=== PATIENT | male | born 1970 | race Caucasian/White ===

== ENCOUNTER 2021-01-23 12:22 | Emergency (ER) | payer BC, OTHER ==
--- NOTE | 2021-01-23 12:51 | XR ---
EXAMINATION TYPE: XR chest 2V DATE OF EXAM: 01/23/2021 COMPARISON: NONE HISTORY: Pneumonia and shortness of breath TECHNIQUE: Frontal and lateral views of the chest are obtained. FINDINGS: There is no focal air space opacity, pleural effusion, or pneumothorax seen. The cardiac silhouette size is within normal limits, questionable prominence of left pulmonary artery, patient is rotated. The osseous structures are intact. IMPRESSION: No acute cardiopulmonary process. Questionable prominence of the pulmonary artery may be technical.
[2021-01-23 13:41] VITALS: RESP 20
[2021-01-23] MEDS ORDERED: SODIUM CHLORIDE 0.9% 1,000 ML IV ONE (13:42)
[2021-01-23] MEDS ORDERED: ACETAMINOPHEN TAB 500 MG TAB PO STA (13:43)
[2021-01-23] MEDS ORDERED: IBUPROFEN 600 MG TAB PO STA (13:43)
--- NOTE | 2021-01-23 13:49 | ED ---
General Adult HPI - General Chief complaint: Upper Respiratory Infection Stated complaint: Stomach, Pain, Loss of taste and smell, headache Time Seen by Provider: 01/23/21 13:48 Source: patient, RN notes reviewed, old records reviewed Mode of arrival: ambulatory Limitations: no limitations - History of Present Illness Initial comments: This a 50-year-old male presents emergency Department with a 2 day history of not feeling well. Patient states he has achiness all over his taste is changed. Patient also states he has diarrhea. Patient states he has a cough and felt short of breath today so decided to come to the emergency department be checked out. Patient doesn't know if he had a fever or not. Patient denies any headache patient denies lightheadedness or dizziness. Patient denies any chest pain. Patient states he had a little abdominal cramping earlier but is gone currently. Patient denies any leg swelling or calf tenderness. - Related Data Home Medications Medication Instructions Recorded Confirmed Atorvastatin [Lipitor] 20 mg PO HS 01/23/21 01/23/21 amLODIPine BESYLATE/BENAZEPRIL 1 cap PO DAILY 01/23/21 01/23/21 [Lotrel 5-20 MG] Previous Rx's Medication Instructions Recorded Atorvastatin [Lipitor] 20 mg PO HS #30 tablet 01/23/21 amLODIPine BESYLATE/BENAZEPRIL 1 tab PO DAILY #30 01/23/21 [amLODIPine BESYLATE/BENAZEPRIL 5-20 MG] Allergies Allergy/AdvReac Type Severity Reaction Status Date / Time No Known Allergies Allergy Verified 01/23/21 15:06 Review of Systems ROS Statement: Those systems with pertinent positive or pertinent negative responses have been documented in the HPI. ROS Other: All systems not noted in ROS Statement are negative. Past Medical History Past Medical History: Hypertension History of Any Multi-Drug Resistant Organisms: None Reported Past Surgical History: Hernia Repair Past Psychological History: No Psychological Hx Reported Smoking Status: Current every day smoker Past Alcohol Use History: None Reported Past Drug Use History: Marijuana General Exam - General Exam Comments Initial Comments: GENERAL: Patient is well-developed and well-nourished. Patient is nontoxic and well- hydrated and is in mild distress. ENT: Neck is soft and supple. No significant lymphadenopathy is noted. Oropharynx is clear. Moist mucous membranes. Neck has full range of motion without eliciting any pain. EYES: The sclera were anicteric and conjunctiva were pink and moist. Extraocular movements were intact and pupils were equal round and reactive to light. Eyelids were unremarkable. PULMONARY: Unlabored respirations. Good breath sounds bilaterally. No audible rales rhonchi or wheezing was noted. CARDIOVASCULAR: There is a regular rate and rhythm without any murmurs gallops or rubs. ABDOMEN: Soft and nontender with normal bowel sounds. SKIN: Skin is clear with no lesions or rashes and otherwise unremarkable. NEUROLOGIC: Patient is alert and oriented x3. Cranial nerves II through XII are grossly intact. Motor and sensory are also intact. Normal speech, volume and content. Symmetrical smile. MUSCULOSKELETAL: Normal extremities with adequate strength and full range of motion. No lower extremity swelling or edema. No calf tenderness. LYMPHATICS: No significant lymphadenopathy is noted PSYCHIATRIC: Normal psychiatric evaluation. Limitations: no limitations Course Vital Signs 01/23/21 01/23/21 01/23/21 12:24 13:14 13:37 Temperature 99.2 F 99.2 F Pulse Rate 104 H 98 95 Respiratory 22 22 20 Rate Blood Pressure 198/77 207/110 180/112 O2 Sat by Pulse 99 98 97 Oximetry 01/23/21 01/23/21 01/23/21 14:49 16:05 16:07 Temperature 98.4 F Pulse Rate 86 91 Respiratory 20 20 20 Rate Blood Pressure 221/120 161/95 O2 Sat by Pulse 98 98 Oximetry Medical Decision Making - Medical Decision Making EKG shows normal sinus rhythm at 60 bpm MS interval is 164 QRS is 90 QT intervals 426 QTC is 452. Patient's EKG shows no ST segment elevation or depression. I could not find any source of infection however patient's symptoms were so consistent with COVID the loss of taste in diarrhea and body aches that I ordered a PCR COVID test. Patient's states he is feeling considerably better after received Tylenol Motrin. Patient's blood pressure came down with hydralazine. I will be ordering patient's blood pressure and Lipitor he has been out of it since 2019 he states he didn't want to go to his doctor's because of the COVID and didn't take any blood pressure meds for over a year - Lab Data Result diagrams: 01/23/21 13:49 01/23/21 13:49 Lab Results 01/23/21 01/23/21 01/23/21 Range/Units 12:28 13:49 13:49 WBC 13.9 H (3.8-10.6) k/uL RBC 5.45 (4.30-5.90) m/uL Hgb 17.7 H (13.0-17.5) gm/dL Hct 50.4 (39.0-53.0) % MCV 92.4 (80.0-100.0) fL MCH 32.5 (25.0-35.0) pg MCHC 35.2 (31.0-37.0) g/dL RDW 13.3 (11.5-15.5) % Plt Count 280 (150-450) k/uL MPV 7.1 Neutrophils % 78 % Lymphocytes % 12 % Monocytes % 5 % Eosinophils % 3 % Basophils % 1 % Neutrophils # 10.9 H (1.3-7.7) k/uL Lymphocytes # 1.7 (1.0-4.8) k/uL Monocytes # 0.7 (0-1.0) k/uL Eosinophils # 0.4 (0-0.7) k/uL Basophils # 0.1 (0-0.2) k/uL Sodium (137-145) mmol/L Potassium (3.5-5.1) mmol/L Chloride (98-107) mmol/L Carbon Dioxide (22-30) mmol/L Anion Gap mmol/L BUN (9-20) mg/dL Creatinine (0.66-1.25) mg/dL Est GFR (CKD-EPI)AfAm (>60 ml/min/1.73 sqM) Est GFR (CKD-EPI)NonAf (>60 ml/min/1.73 sqM) Glucose (74-99) mg/dL Calcium (8.4-10.2) mg/dL Total Bilirubin (0.2-1.3) mg/dL AST (17-59) U/L ALT (4-49) U/L Alkaline Phosphatase (38-126) U/L Total Protein (6.3-8.2) g/dL Albumin (3.5-5.0) g/dL Coronavirus (PCR) Not Detected Not Detected (Not Detectd) 01/23/21 Range/Units 13:49 WBC (3.8-10.6) k/uL RBC (4.30-5.90) m/uL Hgb (13.0-17.5) gm/dL Hct (39.0-53.0) % MCV (80.0-100.0) fL MCH (25.0-35.0) pg MCHC (31.0-37.0) g/dL RDW (11.5-15.5) % Plt Count (150-450) k/uL MPV Neutrophils % % Lymphocytes % % Monocytes % % Eosinophils % % Basophils % % Neutrophils # (1.3-7.7) k/uL Lymphocytes # (1.0-4.8) k/uL Monocytes # (0-1.0) k/uL Eosinophils # (0-0.7) k/uL Basophils # (0-0.2) k/uL Sodium 137 (137-145) mmol/L Potassium 4.0 (3.5-5.1) mmol/L Chloride 103 (98-107) mmol/L Carbon Dioxide 24 (22-30) mmol/L Anion Gap 10 mmol/L BUN 16 (9-20) mg/dL Creatinine 0.92 (0.66-1.25) mg/dL Est GFR (CKD-EPI)AfAm >90 (>60 ml/min/1.73 sqM) Est GFR (CKD-EPI)NonAf >90 (>60 ml/min/1.73 sqM) Glucose 134 H (74-99) mg/dL Calcium 9.2 (8.4-10.2) mg/dL Total Bilirubin 0.5 (0.2-1.3) mg/dL AST 30 (17-59) U/L ALT 36 (4-49) U/L Alkaline Phosphatase 99 (38-126) U/L Total Protein 6.9 (6.3-8.2) g/dL Albumin 4.2 (3.5-5.0) g/dL Coronavirus (PCR) (Not Detectd) Disposition Clinical Impression: Hypertensive urgency, Myalgia, Diarrhea, Upper respiratory infection Disposition: HOME SELF-CARE Instructions (If sedation given, give patient instructions): Upper Respiratory Infection (ED) Prescriptions: amLODIPine BESYLATE/BENAZEPRIL [amLODIPine BESYLATE/BENAZEPRIL 5-20 MG] 1 tab PO DAILY #30 Atorvastatin [Lipitor] 20 mg PO HS #30 tablet Is patient prescribed a controlled substance at d/c from ED?: No Referrals: Bryon Phan DO [Primary Care Provider] - 1-2 days
[2021-01-23 14:02] LABS: Basophils # (A) 0.1 k/uL (0-0.2); Basophils % (A) 1 %; Eosinophils # (A) 0.4 k/uL (0-0.7); Eosinophils % (A) 3 %; HCT 50.4 % (39.0-53.0); HGB 17.7 gm/dL (13.0-17.5); Lymphocytes # (A) 1.7 k/uL (1.0-4.8); Lymphocytes % (A) 12 %; MCH 32.5 pg (25.0-35.0); MCHC 35.2 g/dL (31.0-37.0); MCV 92.4 fL (80.0-100.0); Mean Platelet Volume 7.1; Monocytes # (A) 0.7 k/uL (0-1.0); Monocytes % (A) 5 %; Neutrophils # (A) 10.9 k/uL (1.3-7.7); Neutrophils % (A) 78 %; Platelet Count 280 k/uL (150-450); RBC 5.45 m/uL (4.30-5.90); RDW 13.3 % (11.5-15.5); WBC 13.9 k/uL (3.8-10.6)
[2021-01-23 14:16] LABS: ALT 36 U/L (4-49); AST 30 U/L (17-59); African American GFR (CKD) >90 (>60 ml/min/1.73 sqM); Albumin 4.2 g/dL (3.5-5.0); Alkaline Phosphatase 99 U/L (38-126); Anion Gap 10 mmol/L; Blood Urea Nitrogen 16 mg/dL (9-20); Calcium 9.2 mg/dL (8.4-10.2); Carbon Dioxide 24 mmol/L (22-30); Chloride 103 mmol/L (98-107); Glucose 134 mg/dL (74-99); Non-African American GFR(CKD) >90 (>60 ml/min/1.73 sqM); Sodium 137 mmol/L (137-145); Total Bilirubin 0.5 mg/dL (0.2-1.3); Total Protein 6.9 g/dL (6.3-8.2)
[2021-01-23] MEDS ORDERED: hydrALAZINE HCL 20 MG/ML 1 ML VIAL IVP STA ×2 (14:44→14:50)
[2021-01-23 16:08] VITALS: BP 161/95; PULSE 91; TEMP 98.4
== END 2021-01-23 16:08 | disposition home or self-care (01) ==
LOC: EC 12:22
DX: I16.0 Hypertensive urgency (principal); M79.10 Myalgia, unspecified site; R19.7 Diarrhea, unspecified; J06.9 Acute upper respiratory infection, unspecified; R10.9 Unspecified abdominal pain; R43.9 Unspecified disturbances of smell and taste; I10 Essential (primary) hypertension; F17.200 Nicotine dependence, unspecified, uncomplicated; F12.90 Cannabis use, unspecified, uncomplicated; Z79.899 Other long term (current) drug therapy; Z20.822 Contact with and (suspected) exposure to COVID-19
CPT/HCPCS: 36415; 93005; 80053; 85025; 87635; 71046; 99285; 96374; 96361; J0360

== ENCOUNTER 2021-05-25 10:16 | Day surgery (SDC) | payer BC ==
[2021-05-22 15:10] VITALS: BMI 36.9
[~2021-05-25 10:16] MED LIST: LACTATED RINGERS 1,000 ML IV SCH; LIDOCAINE 1% (10MG/ML) FOR IV START INTRADERMA PRN
[2021-05-25 10:34] VITALS: TEMP 98.4
[2021-05-25] MEDS ORDERED: LIDOCAINE 1% INJ 10MG/ML (20 ML MDV) ONE (11:12)
[2021-05-25] MEDS ORDERED: PROPOFOL 10 MG/ML 20 ML VIAL IV ONE (11:12)
--- NOTE | 2021-05-25 11:29 | P.HPIHPCON ---
History of Present Illness H&P Date: 05/25/21 50-year-old male presents for screening colonoscopy. States he has had colonoscopies in the past and did have polyps found. He admits to some blood in his stool after the prep. Denies any family history of colon cancer. Consent for Procedure: I have explained the operation/procedure to the patient, including the risks, benefits, side effects, alternative therapies (including not receiving the proposed treatment or service), the likelihood of the patient achieving his/her goals, and potential recuperation problems for the procedure/sedation/analgesia, as well as any blood products, if indicated. I also explained to the patient the risks, benefits and side effects of the alternatives, as well as the risks related to not receiving the proposed procedure, care, treatment, or services. - Review of Systems All systems: negative Past Medical History Past Medical History: Hyperlipidemia, Hypertension History of Any Multi-Drug Resistant Organisms: None Reported Past Surgical History: Cholecystectomy, Hernia Repair Additional Past Surgical History / Comment(s): SURGERY TO ABSCESS ON BUTTOCKS Past Anesthesia/Blood Transfusion Reactions: No Reported Reaction Past Psychological History: No Psychological Hx Reported Smoking Status: Current every day smoker Past Alcohol Use History: None Reported Additional Past Alcohol Use History / Comment(s): SMOKES <1/2 PPD SINCE AGE 15 Past Drug Use History: Marijuana Additional Drug Use History / Comment(s): USES MARIJUANA COUPLE TIMES A WEEK- INSTRUCTED TO REFRAIN FROM USE FOR AT LEAST 24 HOURS PRIOR TO PROCEDURE - Past Family History Father Family Medical History: Cancer Medications and Allergies Home Medications Medication Instructions Recorded Confirmed Type Atorvastatin [Lipitor] 20 mg PO HS #30 tablet 01/23/21 05/22/21 Rx amLODIPine BESYLATE/BENAZEPRIL 1 tab PO DAILY #30 01/23/21 05/22/21 Rx [amLODIPine BESYLATE/BENAZEPRIL 5-20 MG] Allergies Allergy/AdvReac Type Severity Reaction Status Date / Time No Known Allergies Allergy Verified 05/22/21 15:02 Surgical - Exam Osteopathic Statement: *. No significant issues noted on an osteopathic structural exam other than those noted in the History and Physical/Consult. Vital Signs Temp Pulse Resp BP Pulse Ox 98.4 F 82 20 177/89 96 05/25/21 10:32 05/25/21 10:32 05/25/21 10:32 05/25/21 10:32 05/25/21 10:32 - General no distress - Neck trachea midline - Respiratory normal respiratory effort - Abdomen Abdomen: soft, non tender Assessment and Plan Plan: Plan for screening colonoscopy. Risks, benefits and alternatives were provided to the patient.. Consent was obtained. Further recommendations after procedure.
--- NOTE | 2021-05-25 11:32 | P.PCN ---
Date of Procedure: 05/25/21 Preoperative Diagnosis: Screening Postoperative Diagnosis: Transverse colon polyp Diverticulosis Internal hemorrhoids Procedure(s) Performed: Colonoscopy with hot snare polypectomy Anesthesia: MAC Surgeon: Evelyne Dia Pathology: other (Transverse colon polyp) Condition: stable Disposition: same day Indications for Procedure: 50-year-old male presents for screening colonoscopy. States he does have a personal history of colon polyps. He did have blood in his stool after his colon prep. Operative Findings: Transverse colon polyp Diverticulosis Internal hemorrhoids Description of Procedure: The patient was brought into the endoscopy suite and placed in left lateral decubitus position. Adequate sedation was achieved using conscious sedation. A digital rectal exam was performed and mild internal hemorrhoids were palpated. An endoscope was then placed in the rectum and advanced to the cecum as identified by landmarks including the appendiceal orifice and the ileocecal valve. The prep was good. The colonoscope was then slowly withdrawn, examining for any mucosal abnormalities. The cecum, ascending, transverse, descending and sigmoid colon were visualized adequately. No large neoplastic lesion was noted. A peduncular polyp was noted in the transverse colon. This was removed with hot snare polypectomy. Hemostasis was noted to be maintained. Diverticulosis was noted in the sigmoid colon. Retroflexion was performed in the rectum and internal hemorrhoids were visible. Excess air was removed, the colonoscope withdrawn and the procedure terminated. The patient was then transferred to the recovery unit in stable condition. Repeat colonoscopy should be performed in 5 years.
[2021-05-25 12:03] VITALS: BP 187/93; PULSE 66; RESP 16
== END 2021-05-25 12:19 | disposition home or self-care (01) ==
LOC: ORWHC2ENDO 10:16
PROVIDERS: ATTEND Surgery
DX: Z12.11 Encounter for screening for malignant neoplasm of colon (principal); D12.3 Benign neoplasm of transverse colon; K57.90 Diverticulosis of intestine, part unspecified, without perforation or abscess without bleeding; K64.8 Other hemorrhoids; I10 Essential (primary) hypertension; E78.5 Hyperlipidemia, unspecified; F17.210 Nicotine dependence, cigarettes, uncomplicated; Z79.899 Other long term (current) drug therapy
CPT/HCPCS: 88305; 45385; J2001; J2704

== ENCOUNTER 2022-06-25 10:49 | Emergency (ER) | payer BC ==
[2022-06-25 11:01] VITALS: TEMP 97.8
[2022-06-25] MEDS ORDERED: MORPHINE SULFATE 4 MG/ML SYRINGE IV STA (11:03)
[2022-06-25 11:35] LABS: Basophils # (A) 0.1 k/uL (0-0.2); Basophils % (A) 1 %; Eosinophils # (A) 0.3 k/uL (0-0.7); Eosinophils % (A) 3 %; HCT 50.7 % (39.0-53.0); Lymphocytes % (A) 18 %; MCHC 33.6 g/dL (31.0-37.0); MCV 98.2 fL (80.0-100.0); Mean Platelet Volume 7.5; Monocytes # (A) 0.5 k/uL (0-1.0); Monocytes % (A) 5 %; Neutrophils % (A) 72 %; Platelet Count 252 k/uL (150-450); RBC 5.16 m/uL (4.30-5.90); WBC 11.1 k/uL (3.8-10.6)
--- NOTE | 2022-06-25 11:45 | CT ---
EXAMINATION TYPE: CT angio abdomen pelvis DATE OF EXAM: 06/25/2022 COMPARISON: Non-, PACS downtime HISTORY: Right upper quadrant pain into back with ripping sensation and nausea and vomiting CT DLP: 1844.4 mGycm, Automated Exposure Control for Dose Reduction was Utilized. CONTRAST: CTA scan of the abdomen and pelvis is performed without oral and without and with IV Contrast, patien t injected with 100 mL of Isovue 370. Three-D reconstructed images created on an independent workstat ion. Dissection protocol. FINDINGS: Vascular: Patent celiac artery and SMA without significant plaque or stenosis. Patent bilateral singl e renal arteries without significant stenosis. Patent TENISHA. Mild peripheral plaque distal abdominal ao rta extends into common iliac artery branches without significant stenosis. No significant plaque or stenosis in the external iliac arteries into the femoral arteries bilaterally. No linear hypodensity to suggest dissection. No greater than 3.0 cm AAA. LUNG BASES: No significant abnormality is appreciated. LIVER/GB: Visualized liver heterogeneously hypodense. Gallbladder surgically absent. No biliary dilat ation. PANCREAS: No significant abnormality is seen. SPLEEN: No significant abnormality is seen. ADRENALS: No significant abnormality is seen. KIDNEYS: No significant abnormality is seen. No convincing CT evidence for acute diverticulitis BOWEL: Prominent sigmoid colonic diverticulosis. PROSTATE/SEMINAL VESICLES: No gross abnormality seen. LYMPH NODES: No greater than 1cm abdominal or pelvic lymph nodes are appreciated. OSSEOUS STRUCTURES: [id number] multilevel spurring in the thoracolumbar spine. OTHER: Narrowing neck Ventral wall hernia containing fat right midabdomen axial image [address] of prior port insertion for laparoscopic surgery. IMPRESSION: No abdominal aortic aneurysm or dissection. No bowel obstruction. No significant acute fi nding is seen to account for patient's clinical symptoms.
[2022-06-25 11:47] LABS: ALT 34 U/L (4-49); AST 31 U/L (17-59); African American GFR (CKD) >90 (>60 ml/min/1.73 sqM); Albumin 4.3 g/dL (3.5-5.0); Alkaline Phosphatase 92 U/L (38-126); Anion Gap 9 mmol/L; Blood Urea Nitrogen 15 mg/dL (9-20); Calcium 8.9 mg/dL (8.4-10.2); Carbon Dioxide 25 mmol/L (22-30); Chloride 103 mmol/L (98-107); Glucose 123 mg/dL (74-99); Lipase 102 U/L (23-300); Non-African American GFR(CKD) >90 (>60 ml/min/1.73 sqM); Potassium 4.1 mmol/L (3.5-5.1); Sodium 137 mmol/L (137-145); Total Bilirubin 0.5 mg/dL (0.2-1.3); Total Protein 6.6 g/dL (6.3-8.2)
[2022-06-25 11:51] LABS: INR 0.9 (<1.2); Prothrombin Time 9.9 sec (9.0-12.0)
[2022-06-25 11:56] LABS: Partial Thromboplastin Time 21.7 sec (22.0-30.0)
[2022-06-25 12:06] LABS: Appearance,Urine Clear (Clear); Bilirubin,Urine Negative (Negative); Blood,Urine Negative (Negative); Color,Urine Light Yellow; Glucose,Urine (UA) Negative (Negative); Ketones,Urine Negative (Negative); Leukocyte Esterase,Urine Negative (Negative); Nitrite,Urine Negative (Negative); PH, Urine 6.5 (5.0-8.0); Protein,Urine Negative (Negative); Specific Gravity,Urine 1.025 (1.001-1.035); Urobilinogen,Urine <2.0 mg/dL (<2.0)
[2022-06-25 12:47] VITALS: BP 185/101; PULSE 62; RESP 14
--- NOTE | 2022-06-25 13:00 | ED ---
Abdominal Pain HPI - General Chief Complaint: Abdominal Pain Stated Complaint: abd pain Time Seen by Provider: 06/25/22 10:52 Source: patient Mode of arrival: EMS Limitations: no limitations - History of Present Illness Initial Comments: 51-year-old male with past history of hyperlipidemia hypertension presents emergency room with abdominal pain. He went to [facility] and sat there for 13 hours yesterday for right upper quadrant abdominal pain. He was unable to be seen. Came into our emergency department this morning and left after a two-hour wait. Patient then went to an urgent care for his pain where an ambulance was called. They were concerned about his elevated blood pressure and abdominal pain which went to his back. He does have a history of high blood pressure did not take his medications today. Admits to associated nausea without vomiting. No changes in his bowel or bladder habits. No numbness, tingling or weakness in his extremities. No other alleviating, party plan selling distributor modifying factors - Related Data Previous Rx's Medication Instructions Recorded Atorvastatin [Lipitor] 20 mg PO HS #30 tablet 01/23/21 amLODIPine BESYLATE/BENAZEPRIL 1 tab PO DAILY #30 01/23/21 [amLODIPine BESYLATE/BENAZEPRIL 5-20 MG] HYDROcodone/APAP 7.5-325MG [Basin 1 tab PO Q6HR PRN 3 Days #12 tab 06/25/22 7.5-325] Allergies Allergy/AdvReac Type Severity Reaction Status Date / Time No Known Allergies Allergy Verified 06/25/22 11:02 Review of Systems ROS Statement: Those systems with pertinent positive or pertinent negative responses have been documented in the HPI. ROS Other: All systems not noted in ROS Statement are negative. Past Medical History Past Medical History: Hyperlipidemia, Hypertension History of Any Multi-Drug Resistant Organisms: None Reported Past Surgical History: Cholecystectomy, Heart Catheterization With Stent, Hernia Repair Additional Past Surgical History / Comment(s): SURGERY TO ABSCESS ON BUTTOCKS Past Anesthesia/Blood Transfusion Reactions: No Reported Reaction Past Psychological History: No Psychological Hx Reported Smoking Status: Current every day smoker Past Alcohol Use History: None Reported Past Drug Use History: Marijuana - Past Family History Father Family Medical History: Cancer General Exam Limitations: no limitations General appearance: alert, in no apparent distress Head exam: Present: atraumatic, normocephalic, normal inspection Eye exam: Present: normal appearance, PERRL, EOMI. Absent: scleral icterus, conjunctival injection, periorbital swelling ENT exam: Present: normal exam, mucous membranes moist Neck exam: Present: normal inspection. Absent: tenderness, meningismus, lymphadenopathy Respiratory exam: Present: normal lung sounds bilaterally. Absent: respiratory distress, wheezes, rales, rhonchi, stridor Cardiovascular Exam: Present: regular rate, normal rhythm, normal heart sounds. Absent: systolic murmur, diastolic murmur, rubs, gallop, clicks GI/Abdominal exam: Present: soft, normal bowel sounds. Absent: distended, tenderness, guarding, rebound, rigid Extremities exam: Present: normal inspection, full ROM, normal capillary refill. Absent: tenderness, pedal edema, joint swelling, calf tenderness Back exam: Present: normal inspection Neurological exam: Present: alert, oriented X3, CN II-XII intact Psychiatric exam: Present: normal affect, normal mood Skin exam: Present: warm, dry, intact, normal color. Absent: rash Course Vital Signs 06/25/22 06/25/22 06/25/22 10:57 11:20 11:40 Temperature 97.8 F Pulse Rate 80 79 80 Respiratory 18 16 16 Rate Blood Pressure 203/103 189/105 206/103 O2 Sat by Pulse 98 96 96 Oximetry 06/25/22 06/25/22 06/25/22 11:50 12:05 12:15 Temperature Pulse Rate 66 67 64 Respiratory 18 18 19 Rate Blood Pressure 167/116 186/109 186/109 O2 Sat by Pulse 94 L 95 95 Oximetry 06/25/22 06/25/22 06/25/22 12:20 12:25 12:30 Temperature Pulse Rate 61 67 62 Respiratory 18 17 18 Rate Blood Pressure 186/109 185/101 185/101 O2 Sat by Pulse 94 L 95 94 L Oximetry 06/25/22 06/25/22 12:35 12:40 Temperature Pulse Rate 64 62 Respiratory 19 14 Rate Blood Pressure 185/101 185/101 O2 Sat by Pulse 94 L 94 L Oximetry Medical Decision Making - Medical Decision Making Upon arrival patient was placed into room, 4. IV is established. Laboratory scissor conducted. Patient is given pain medications. Laboratory studies are reviewed. CT the abdomen and pelvis is performed which does not demonstrate si gns of dissection. Patient does have a very small anterior wall hernia. Patient will be discharged home with pain medication. Follow up with his primary care doctor in 2-4 days or return for any new or worsening symptoms. Patient was agreeable to plan discharge home in stable condition - Lab Data Result diagrams: 06/25/22 11:05 06/25/22 11:05 Lab Results 06/25/22 06/25/22 06/25/22 Range/Units 11:05 11:05 11:05 WBC 11.1 H (3.8-10.6) k/uL RBC 5.16 (4.30-5.90) m/uL Hgb 17.0 (13.0-17.5) gm/dL Hct 50.7 (39.0-53.0) % MCV 98.2 (80.0-100.0) fL MCH 33.0 (25.0-35.0) pg MCHC 33.6 (31.0-37.0) g/dL RDW 14.0 (11.5-15.5) % Plt Count 252 (150-450) k/uL MPV 7.5 Neutrophils % 72 % Lymphocytes % 18 % Monocytes % 5 % Eosinophils % 3 % Basophils % 1 % Neutrophils # 8.0 H (1.3-7.7) k/uL Lymphocytes # 2.0 (1.0-4.8) k/uL Monocytes # 0.5 (0-1.0) k/uL Eosinophils # 0.3 (0-0.7) k/uL Basophils # 0.1 (0-0.2) k/uL PT 9.9 (9.0-12.0) sec INR 0.9 (<1.2) APTT 21.7 L (22.0-30.0) sec Sodium (137-145) mmol/L Potassium (3.5-5.1) mmol/L Chloride (98-107) mmol/L Carbon Dioxide (22-30) mmol/L Anion Gap mmol/L BUN (9-20) mg/dL Creatinine (0.66-1.25) mg/dL Est GFR (CKD-EPI)AfAm (>60 ml/min/1.73 sqM) Est GFR (CKD-EPI)NonAf (>60 ml/min/1.73 sqM) Glucose (74-99) mg/dL Plasma Lactic Acid Robbi (0.7-2.0) mmol/L Calcium (8.4-10.2) mg/dL Total Bilirubin (0.2-1.3) mg/dL AST (17-59) U/L ALT (4-49) U/L Alkaline Phosphatase (38-126) U/L Troponin I (0.000-0.034) ng/mL Total Protein (6.3-8.2) g/dL Albumin (3.5-5.0) g/dL Lipase (23-300) U/L Urine Color Light Yellow Urine Appearance Clear (Clear) Urine pH 6.5 (5.0-8.0) Ur Specific [place] 1.025 (1.001-1.035) Urine Protein Negative (Negative) Urine Glucose (UA) Negative (Negative) Urine Ketones Negative (Negative) Urine Blood Negative (Negative) Urine Nitrite Negative (Negative) Urine Bilirubin Negative (Negative) Urine Urobilinogen <2.0 (<2.0) mg/dL Ur Leukocyte Esterase Negative (Negative) 06/25/22 06/25/22 06/25/22 Range/Units 11:05 11:05 11:05 WBC (3.8-10.6) k/uL RBC (4.30-5.90) m/uL Hgb (13.0-17.5) gm/dL Hct (39.0-53.0) % MCV (80.0-100.0) fL MCH (25.0-35.0) pg MCHC (31.0-37.0) g/dL RDW (11.5-15.5) % Plt Count (150-450) k/uL MPV Neutrophils % % Lymphocytes % % Monocytes % % Eosinophils % % Basophils % % Neutrophils # (1.3-7.7) k/uL Lymphocytes # (1.0-4.8) k/uL Monocytes # (0-1.0) k/uL Eosinophils # (0-0.7) k/uL Basophils # (0-0.2) k/uL PT (9.0-12.0) sec INR (<1.2) APTT (22.0-30.0) sec Sodium 137 (137-145) mmol/L Potassium 4.1 (3.5-5.1) mmol/L Chloride 103 (98-107) mmol/L Carbon Dioxide 25 (22-30) mmol/L Anion Gap 9 mmol/L BUN 15 (9-20) mg/dL Creatinine 0.82 (0.66-1.25) mg/dL Est GFR (CKD-EPI)AfAm >90 (>60 ml/min/1.73 sqM) Est GFR (CKD-EPI)NonAf >90 (>60 ml/min/1.73 sqM) Glucose 123 H (74-99) mg/dL Plasma Lactic Acid Robbi 1.2 (0.7-2.0) mmol/L Calcium 8.9 (8.4-10.2) mg/dL Total Bilirubin 0.5 (0.2-1.3) mg/dL AST 31 (17-59) U/L ALT 34 (4-49) U/L Alkaline Phosphatase 92 (38-126) U/L Troponin I <0.012 (0.000-0.034) ng/mL Total Protein 6.6 (6.3-8.2) g/dL Albumin 4.3 (3.5-5.0) g/dL Lipase 102 (23-300) U/L Urine Color Urine Appearance (Clear) Urine pH (5.0-8.0) Ur Specific [place] (1.001-1.035) Urine Protein (Negative) Urine Glucose (UA) (Negative) Urine Ketones (Negative) Urine Blood (Negative) Urine Nitrite (Negative) Urine Bilirubin (Negative) Urine Urobilinogen (<2.0) mg/dL Ur Leukocyte Esterase (Negative) Disposition Clinical Impression: Abdominal pain, Hernia Disposition: HOME SELF-CARE Condition: Stable Instructions (If sedation given, give patient instructions): Abdominal Pain (ED) Additional Instructions: You have a small hernia. Please take the pain medications as directed. No heavy lifting or straining. Follow up with your primary care doctor and if you continue to have pain, you may need to see the surgeon. Return for any new or worsening symptoms Prescriptions: HYDROcodone/APAP 7.5-325MG [Basin 7.5-325] 1 tab PO Q6HR PRN 3 Days #12 tab PRN Reason: Pain Is patient prescribed a controlled substance at d/c from ED?: Yes When asked, does pt state using other controlled substances?: No If prescribed controlled substance>3 days was MAPS reviewed?: Prescribed <3 Days Referrals: Bryon Phan DO [Primary Care Provider] - 1-2 days Baltazar Navarrete MD [STAFF PHYSICIAN] - 1-2 days Time of Disposition: 13:00
== END 2022-06-25 13:01 | disposition home or self-care (01) ==
LOC: EC 10:49
DX: K46.9 Unspecified abdominal hernia without obstruction or gangrene (principal); E78.5 Hyperlipidemia, unspecified; I10 Essential (primary) hypertension; F17.200 Nicotine dependence, unspecified, uncomplicated; F12.90 Cannabis use, unspecified, uncomplicated; Z79.899 Other long term (current) drug therapy
CPT/HCPCS: 36415; 93005; 80053; 83605; 83690; 84484; 85025; 85610; 85730; 81003; 74174; 99285; 96374; J2270; Q9967

== ENCOUNTER 2023-12-28 17:05 | Emergency (ER) | payer BC ==
[2023-12-28 17:20] VITALS: BP 184/89; PULSE 82; RESP 18; TEMP 97.9
--- NOTE | 2023-12-28 17:21 | ED ---
Abdominal Pain HPI - General Chief Complaint: Abdominal Pain Stated Complaint: back pain Time Seen by Provider: 12/28/23 17:21 Source: patient, RN notes reviewed Mode of arrival: ambulatory Limitations: no limitations - History of Present Illness Initial Comments: 53-year-old male presents emergency department chief complaint of right-sided rib pain/discomfort that radiates into his back and ongoing over the past few months after a had a ventral hernia repair. He states that is worse when he moves, lays on his side, or with deep breathing. Denies any trauma or falls, history of kidney stones or acute pancreatitis. States that he has ongoing diarrhea, denies hematochezia, history of cholecystectomy. - Related Data Previous Rx's Medication Instructions Recorded Atorvastatin [Lipitor] 20 mg PO HS #30 tablet 01/23/21 amLODIPine BESYLATE/BENAZEPRIL 1 tab PO DAILY #30 01/23/21 [amLODIPine BESYLATE/BENAZEPRIL 5-20 MG] HYDROcodone/APAP 7.5-325MG [[place] 1 tab PO Q6HR PRN 3 Days #12 tab 06/25/22 7.5-325] Allergies Allergy/AdvReac Type Severity Reaction Status Date / Time No Known Allergies Allergy Verified 12/28/23 17:17 Review of Systems ROS Statement: Those systems with pertinent positive or pertinent negative responses have been documented in the HPI. ROS Other: All systems not noted in ROS Statement are negative. Past Medical History Past Medical History: Hyperlipidemia, Hypertension History of Any Multi-Drug Resistant Organisms: None Reported Past Surgical History: Cholecystectomy, Heart Catheterization With Stent, Hernia Repair Additional Past Surgical History / Comment(s): SURGERY TO ABSCESS ON BUTTOCKS Past Anesthesia/Blood Transfusion Reactions: No Reported Reaction Past Psychological History: No Psychological Hx Reported Smoking Status: Current every day smoker Past Alcohol Use History: None Reported Past Drug Use History: Marijuana - Past Family History Father Family Medical History: Cancer General Exam Limitations: no limitations General appearance: alert, in no apparent distress Head exam: Present: atraumatic, normocephalic, normal inspection Eye exam: Present: other (bilateral xanthelasma noted) ENT exam: Present: normal exam, mucous membranes moist Neck exam: Present: normal inspection. Absent: tenderness, meningismus, lymphadenopathy Respiratory exam: Present: wheezes (diffuse expiratory wheezes), decreased breath sounds. Absent: respiratory distress, rales, rhonchi, stridor Cardiovascular Exam: Present: regular rate, normal rhythm, normal heart sounds. Absent: systolic murmur, diastolic murmur, rubs, gallop, clicks GI/Abdominal exam: Present: distended, normal bowel sounds. Absent: tenderness, guarding, rebound, rigid Extremities exam: Present: normal inspection, full ROM, normal capillary refill, other (Tenderness to palpation over sided ribs 8 9 and 10). Absent: tenderness, pedal edema, joint swelling, calf tenderness Back exam: Present: normal inspection Neurological exam: Present: alert, oriented X3, CN II-XII intact Psychiatric exam: Present: normal affect, normal mood Skin exam: Present: warm, dry, intact, normal color. Absent: rash Course Vital Signs 12/28/23 17:12 Temperature 97.9 F Pulse Rate 82 Respiratory 18 Rate Blood Pressure 184/89 O2 Sat by Pulse 98 Oximetry Medical Decision Making - Medical Decision Making Was pt. sent in by a medical professional or institution (, PA, [facility]ARE [facility], urgent care, hospital, or residential...) When possible be specific @ -No Did you speak to anyone other than the patient for history (EMS, parent, family, police, friend...)? What history was obtained from this source @ -No Did you review nursing and triage notes (agree or disagree)? Why? @ -I reviewed and agree with nursing and triage notes Were old charts reviewed (outside hosp., previous admission, EMS record, old EKG, old radiological studies, urgent care reports/EKG's, residential records)? Report findings @ -No old charts were reviewed Differential Diagnosis (chest pain, altered mental status, abdominal pain women, abdominal pain men, vaginal bleeding, weakness, fever, dyspnea, syncope, headache, dizziness, GI bleed, back pain, seizure, CVA, palpatations, mental health, musculoskeletal)? @ -Differential Musculoskeletal Muscular strain, contusion, ligament sprain, fracture, arthritis, septic arthritis, bursitis, cellulitis, muscle spasm, nerve compression, DVT, arterial occlusion, herpes zoster, electrolyte abnormality, tumor.... This is not meant to be in all inclusive list EKG interpreted by me (3pts min.). @ -As above X-rays interpreted by me (1pt min.). @ -X-ray no acute cardiopulmonary process, no acute bony defects. CT interpreted by me (1pt min.). @ -None done U/S interpreted by me (1pt. min.). @ -None done What testing was considered but not performed or refused? (CT, X-rays, U/S, labs)? Why? @ -None What meds were considered but not given or refused? Why? @ -None Did you discuss the management of the patient with other professionals (professionals i.e. DrKenyatta, PA, [facility], lab, RT, psych nurse, social services technician, metrology engineer, teacher, seal delivery vehicle officer, nurse case management)? Give summary @ -No Was smoking cessation discussed for >3mins.? @ -No Was critical care preformed (if so, how long)? @ -No Were there social determinants of health that impacted care today? How? (Homelessness, low income, unemployed, alcoholism, drug addiction, transportation, low edu. Level, literacy, decrease access to med. care, fpc, rehab)? @ -No Was there de-escalation of care discussed even if they declined (Discuss DNR or withdrawal of care, Hospice)? DNR status @ -No What co-morbidities impacted this encounter? (DM, HTN, Smoking, COPD, CAD, Cancer, CVA, ARF, Chemo, Hep., AIDS, mental health diagnosis, sleep apnea, morbid obesity)? @ -smoking, hyperlipidemia Was patient admitted / discharged? Hospital course, mention meds given and route, prescriptions, significant lab abnormalities, going to OR and other pertinent info. @ -53-year-old male with chief complaint of right sided abdominal and back pain. discussed that symptoms are likely secondary to a musculoskeletal injury due to pain with movement and palpation. however, on physicial exam, patient was noted to have bilateral xanthalasms on his eyelids. Prompting concern for potential pancreatitis due to liklihood in elevation of lipids. Patient given IV fluids and IM toradol for pain relief. CBC with no acute signs of leukocytosis thrombocytosis or anemia. No acute electrolyte abnormalities, no elevation in pancreatic enzymes. This patient to follow-up with primary care provider for further evaluation. Undiagnosed new problem with uncertain prognosis? @ -No Drug Therapy requiring intensive monitoring for toxicity (Heparin, Nitro, Insulin, Cardizem)? @ -No Were any procedures done? @ -No Diagnosis/symptom? @ -muscle strain Acute, or Chronic, or Acute on Chronic? @ -acute Uncomplicated (without systemic symptoms) or Complicated (systemic symptoms)? @ -uncomplicated Side effects of treatment? @ -No Exacerbation, Progression, or Severe Exacerbation? @ -No Poses a threat to life or bodily function? How? (Chest pain, [place], [place], pneumonia, PE, COPD, DKA, ARF, appy, cholecystitis, CVA, Diverticulitis, Homicidal, Suicidal, threat to staff... and all critical care pts) @ -No - Lab Data Result diagrams: 12/28/23 18:10 12/28/23 18:10 Lab Results 12/28/23 12/28/23 Range/Units 18:10 18:10 WBC 11.9 H (3.8-10.6) k/uL RBC 5.44 (4.30-5.90) m/uL Hgb 17.6 H (13.0-17.5) gm/dL Hct 51.3 (39.0-53.0) % MCV 94.4 (80.0-100.0) fL MCH 32.3 (25.0-35.0) pg MCHC 34.2 (31.0-37.0) g/dL RDW 13.8 (11.5-15.5) % Plt Count 327 (150-450) k/uL MPV 7.8 Neutrophils % 69 % Lymphocytes % 20 % Monocytes % 5 % Eosinophils % 3 % Basophils % 1 % Neutrophils # 8.2 H (1.3-7.7) k/uL Lymphocytes # 2.4 (1.0-4.8) k/uL Monocytes # 0.6 (0-1.0) k/uL Eosinophils # 0.3 (0-0.7) k/uL Basophils # 0.1 (0-0.2) k/uL Sodium 137 (137-145) mmol/L Potassium 4.2 (3.5-5.1) mmol/L Chloride 104 (98-107) mmol/L Carbon Dioxide 23 (22-30) mmol/L Anion Gap 10 mmol/L BUN 13 (9-20) mg/dL Creatinine 0.93 (0.66-1.25) mg/dL Est GFR (CKD-EPI)AfAm >90 (>60 ml/min/1.73 sqM) Est GFR (CKD-EPI)NonAf >90 (>60 ml/min/1.73 sqM) Glucose 107 H (74-99) mg/dL Calcium 9.2 (8.4-10.2) mg/dL Total Bilirubin 0.5 (0.2-1.3) mg/dL AST 30 (17-59) U/L ALT 35 (4-49) U/L Alkaline Phosphatase 104 (38-126) U/L Total Protein 7.0 (6.3-8.2) g/dL Albumin 4.4 (3.5-5.0) g/dL Amylase 58 (30-110) U/L Lipase 101 (23-300) U/L Disposition Clinical Impression: Muscle strain of chest wall Narrative: Please return to the Emergency Department if symptoms worsen or any other concerns. Encourage patient to follow-up with primary care provider for further outpatient testing. Disposition: HOME SELF-CARE Condition: Good Is patient prescribed a controlled substance at d/c from ED?: No Referrals: Bryon Phan DO [Primary Care Provider] - 1-2 days Time of Disposition: 18:58
--- NOTE | 2023-12-28 17:42 | XR ---
EXAMINATION TYPE: XR chest 2V DATE OF EXAM: 12/28/2023 5:35 PM CLINICAL INDICATION:Male, 53 years old with history of chest pain with movement; [facility] COMPARISON: None. TECHNIQUE: XR chest 2V Frontal and lateral views of the chest. FINDINGS: Lungs/Pleura: There is no evidence of pleural effusion, focal consolidation, or pneumothorax. Pulmonary vascularity: Unremarkable. Heart/mediastinum: Cardiomediastinal silhouette is unremarkable. Musculoskeletal: No acute osseous pathology. IMPRESSION: No acute cardiopulmonary disease/process.
[2023-12-28] MEDS: KETOROLAC 15 MG/ML 1 ML VIAL IVP STA (18:10)
[2023-12-28] MEDS: SODIUM CHLORIDE 0.9% 1,000 ML IV STA (18:12)
[2023-12-28 18:25] LABS: Basophils # (A) 0.1 k/uL (0-0.2); Basophils % (A) 1 %; Eosinophils # (A) 0.3 k/uL (0-0.7); Eosinophils % (A) 3 %; HCT 51.3 % (39.0-53.0); HGB 17.6 gm/dL (13.0-17.5); Lymphocytes # (A) 2.4 k/uL (1.0-4.8); Lymphocytes % (A) 20 %; MCH 32.3 pg (25.0-35.0); MCHC 34.2 g/dL (31.0-37.0); MCV 94.4 fL (80.0-100.0); Mean Platelet Volume 7.8; Monocytes # (A) 0.6 k/uL (0-1.0); Monocytes % (A) 5 %; Neutrophils # (A) 8.2 k/uL (1.3-7.7); Neutrophils % (A) 69 %; Platelet Count 327 k/uL (150-450); RBC 5.44 m/uL (4.30-5.90); RDW 13.8 % (11.5-15.5); WBC 11.9 k/uL (3.8-10.6)
[2023-12-28 18:35] LABS: ALT 35 U/L (4-49); AST 30 U/L (17-59); African American GFR (CKD) >90 (>60 ml/min/1.73 sqM); Albumin 4.4 g/dL (3.5-5.0); Alkaline Phosphatase 104 U/L (38-126); Amylase 58 U/L (30-110); Anion Gap 10 mmol/L; Blood Urea Nitrogen 13 mg/dL (9-20); Calcium 9.2 mg/dL (8.4-10.2); Carbon Dioxide 23 mmol/L (22-30); Chloride 104 mmol/L (98-107); Glucose 107 mg/dL (74-99); Lipase 101 U/L (23-300); Non-African American GFR(CKD) >90 (>60 ml/min/1.73 sqM); Potassium 4.2 mmol/L (3.5-5.1); Sodium 137 mmol/L (137-145); Total Bilirubin 0.5 mg/dL (0.2-1.3)
[2023-12-29 07:50] LABS: Chol/HDL Ratio 5.98 Ratio; LDL Cholesterol,Calculated 126.8 mg/dL (0.0-131.0)
== END 2023-12-28 19:21 | disposition home or self-care (01) ==
LOC: EC 17:05
DX: S29.011A Strain of muscle and tendon of front wall of thorax, initial encounter (principal); I10 Essential (primary) hypertension; F17.200 Nicotine dependence, unspecified, uncomplicated; Z90.49 Acquired absence of other specified parts of digestive tract; X58.XXXA Exposure to other specified factors, initial encounter
CPT/HCPCS: 36415; 80061; 80053; 82150; 83690; 85025; 71046; 99284; 96374; 96361; J1885

== ENCOUNTER 2024-04-26 17:20 | Observation (INO) | payer BC ==
--- NOTE | 2024-04-26 17:45 | ED ---
General Adult HPI - General Chief complaint: Chest Pain Stated complaint: Chest pain Time Seen by Provider: 04/26/24 17:23 Source: patient, EMS, RN notes reviewed Mode of arrival: EMS Limitations: no limitations - History of Present Illness Initial comments: Patient is a 53-year-old male present to the emergency department with concerns with chest discomfort. Onset of symptoms was prior to arrival. Discomfort was somewhat severe. Patient was just standing at pool side. Discomfort is now mild, almost resolved. Discomfort felt sharp. Patient did have some associated dyspnea and nausea. Patient was sweaty. Patient did feel lightheaded. No hi story of similar symptoms previously. Patient did have previous chest discomfort and had a recording device attached - Related Data Home Medications Medication Instructions Recorded Confirmed Atorvastatin [Lipitor] 40 mg PO DIRECTED 04/26/24 04/26/24 Butalb/Acetaminophen/Caffeine 1 tab PO Q6H PRN 04/26/24 04/26/24 [Esgic 50-325-40 mg Tablet] Guaifenesin/Dextromethorphan 5 ml PO Q6H PRN 04/26/24 04/26/24 [Guaifenesin-Dm 100-10 mg/5 ml] Pantoprazole [Protonix] 40 mg PO DAILY 04/26/24 04/26/24 amLODIPine BESYLATE/BENAZEPRIL 1 cap PO DAILY 04/26/24 04/26/24 [Lotrel 10-40 mg Capsule] Allergies Allergy/AdvReac Type Severity Reaction Status Date / Time No Known Allergies Allergy Verified 04/26/24 19:19 Review of Systems ROS Statement: Those systems with pertinent positive or pertinent negative responses have been documented in the HPI. ROS Other: All systems not noted in ROS Statement are negative. Constitutional: Denies: fever Eyes: Denies: eye pain ENT: Denies: ear pain Respiratory: Reports: as per HPI Cardiovascular: Reports: as per HPI, chest pain Gastrointestinal: Denies: abdominal pain Genitourinary: Denies: dysuria Musculoskeletal: Denies: back pain Skin: Denies: rash Neurological: Denies: weakness Past Medical History Past Medical History: Chest Pain / Angina, Hyperlipidemia, Hypertension History of Any Multi-Drug Resistant Organisms: None Reported Past Surgical History: Cholecystectomy, Heart Catheterization With Stent, Hernia Repair Additional Past Surgical History / Comment(s): SURGERY TO ABSCESS ON BUTTOCKS Past Anesthesia/Blood Transfusion Reactions: No Reported Reaction Past Psychological History: No Psychological Hx Reported Smoking Status: Current every day smoker Past Alcohol Use History: None Reported Past Drug Use History: Marijuana - Past Family History Father Family Medical History: Cancer General Exam Limitations: no limitations General appearance: alert, in no apparent distress Head exam: Present: normocephalic Eye exam: Present: normal appearance Neck exam: Present: normal inspection Respiratory exam: Present: normal lung sounds bilaterally. Absent: chest wall tenderness Cardiovascular Exam: Present: regular rate, normal rhythm, normal heart sounds Expanded Peripheral pulses: 2+: Radial (R), Radial (L), Posterior Tibialis (R), Posterior Tibialis (L) GI/Abdominal exam: Present: soft. Absent: distended, tenderness Extremities exam: Present: normal inspection. Absent: pedal edema, calf tenderness Neurological exam: Present: alert Psychiatric exam: Present: normal affect, normal mood Skin exam: Present: normal color Course Vital Signs 04/26/24 04/26/24 17:22 19:20 Temperature 98.4 F Pulse Rate 74 62 Respiratory 16 16 Rate Blood Pressure 159/72 142/72 O2 Sat by Pulse 96 97 Oximetry EKG Findings - EKG Results: EKG: interpreted by ERMD, sinus rhythm, normal axis, normal QRS, normal ST/T Medical Decision Making - Medical Decision Making Was pt. sent in by a medical professional or institution (EFREN Tubbs, DIRECTOR OF FUNDRAISING, urgent care, hospital, or [place] [facility]...) When possible be specific @ -No Did you speak to anyone other than the patient for history (EMS, parent, family, police, friend...)? What history was obtained from this source @ -No Did you review nursing and triage notes (agree or disagree)? Why? @ -I reviewed and agree with nursing and triage notes Were old charts reviewed (outside hosp., previous admission, EMS record, old EKG, old radiological studies, urgent care reports/EKG's, [place] [facility] records)? Report findings @ -No old charts were reviewed Differential Diagnosis (chest pain, altered mental status, abdominal pain women, abdominal pain men, vaginal bleeding, weakness, fever, dyspnea, syncope, headache, dizziness, GI bleed, back pain, seizure, CVA, palpatations, mental health, musculoskeletal)? @ -Differential Chest Pain: Stable Angina, Unstable Angina, STEMI, NSTEMI Aortic Dissection, Pneumothorax, Musculoskeletal, Esophageal Spasm GERD, Cholecystitis, Pancreatitis, Zoster, this is not meant to be an all-inclusive list. EKG interpreted by me (3pts min.). @ -As above X-rays interpreted by me (1pt min.). @ -Chest x-ray shows no acute process CT interpreted by me (1pt min.). @ -None done U/S interpreted by me (1pt. min.). @ -None done What testing was considered but not performed or refused? (CT, X-rays, U/S, labs)? Why? @ -None What meds were considered but not given or refused? Why? @ -None Did you discuss the management of the patient with other professionals (professionals i.e. , PA, DIRECTOR OF FUNDRAISING, lab, RT, psych nurse, social service liaison, client finance analyst, teacher, senior compliance officer, heel caser)? Give summary @ -Case was discussed with Dr. Brownlee, covering Dr. Phan, who will admit. Was smoking cessation discussed for >3mins.? @ -No Was critical care preformed (if so, how long)? @ -No Were there social determinants of health that impacted care today? How? (Homelessness, low income, unemployed, alcoholism, drug addiction, transportation, low edu. Level, literacy, decrease access to med. care, detention, rehab)? @ -No Was there de-escalation of care discussed even if they declined (Discuss DNR or withdrawal of care, Hospice)? DNR status @ -No What co-morbidities impacted this encounter? (DM, HTN, Smoking, COPD, CAD, Cancer, CVA, ARF, Chemo, Hep., AIDS, mental health diagnosis, sleep apnea, morbid obesity)? @ -None Was patient admitted / discharged? Hospital course, mention meds given and route, prescriptions, significant lab abnormalities, going to OR and other pertinent info. @ -Patient reevaluated and feeling much better, symptom-free. Patient sitting upright in bed. Patient is updated on results and plan. Patient will be admitted with cardiac consult. Admission orders placed. Undiagnosed new problem with uncertain prognosis? @ -No Drug Therapy requiring intensive monitoring for toxicity (Heparin, Nitro, Insulin, Cardizem)? @ -No Were any procedures done? @ -No Diagnosis/symptom? @ -Chest pain Acute, or Chronic, or Acute on Chronic? @ -Acute Uncomplicated (without systemic symptoms) or Complicated (systemic symptoms)? @ -Default Side effects of treatment? @ -No Exacerbation, Progression, or Severe Exacerbation? @ -No Poses a threat to life or bodily function? How? (Chest pain, [place], [place], pneumonia, PE, COPD, DKA, ARF, appy, cholecystitis, CVA, Diverticulitis, Homicidal, Suicidal, threat to staff... and all critical care pts) @ -No - Lab Data Result diagrams: 04/26/24 18:03 04/26/24 18:03 Lab Results 04/26/24 04/26/24 04/26/24 Range/Units 18:03 18:03 18:03 WBC 8.9 (3.8-10.6) k/uL RBC 4.81 (4.30-5.90) m/uL Hgb 15.2 (13.0-17.5) gm/dL Hct 46.7 (39.0-53.0) % MCV 97.1 (80.0-100.0) fL MCH 31.6 (25.0-35.0) pg MCHC 32.6 (31.0-37.0) g/dL RDW 13.2 (11.5-15.5) % Plt Count 330 (150-450) k/uL MPV 7.5 Neutrophils % 66 % Lymphocytes % 24 % Monocytes % 5 % Eosinophils % 3 % Basophils % 1 % Neutrophils # 5.9 (1.3-7.7) k/uL Lymphocytes # 2.1 (1.0-4.8) k/uL Monocytes # 0.5 (0-1.0) k/uL Eosinophils # 0.2 (0-0.7) k/uL Basophils # 0.1 (0-0.2) k/uL PT 10.5 (10.0-12.5) sec INR 1.0 (<1.2) APTT 25.0 (22.0-30.0) sec D-Dimer 0.31 (<0.60) mg/L FEU Sodium 136 L (137-145) mmol/L Potassium 3.5 (3.5-5.1) mmol/L Chloride 104 (98-107) mmol/L Carbon Dioxide 27 (22-30) mmol/L Anion Gap 5 mmol/L BUN 14 (9-20) mg/dL Creatinine 0.87 (0.66-1.25) mg/dL Est GFR (CKD-EPI)AfAm >90 (>60 ml/min/1.73 sqM) Est GFR (CKD-EPI)NonAf >90 (>60 ml/min/1.73 sqM) Glucose 106 H (74-99) mg/dL Calcium 8.9 (8.4-10.2) mg/dL Magnesium 2.1 (1.6-2.3) mg/dL Total Bilirubin 0.4 (0.2-1.3) mg/dL AST 32 (17-59) U/L ALT 48 (4-49) U/L Alkaline Phosphatase 90 (38-126) U/L Troponin I (0.000-0.034) ng/mL Total Protein 6.0 L (6.3-8.2) g/dL Albumin 3.7 (3.5-5.0) g/dL 04/26/24 Range/Units 18:03 WBC (3.8-10.6) k/uL RBC (4.30-5.90) m/uL Hgb (13.0-17.5) gm/dL Hct (39.0-53.0) % MCV (80.0-100.0) fL MCH (25.0-35.0) pg MCHC (31.0-37.0) g/dL RDW (11.5-15.5) % Plt Count (150-450) k/uL MPV Neutrophils % % Lymphocytes % % Monocytes % % Eosinophils % % Basophils % % Neutrophils # (1.3-7.7) k/uL Lymphocytes # (1.0-4.8) k/uL Monocytes # (0-1.0) k/uL Eosinophils # (0-0.7) k/uL Basophils # (0-0.2) k/uL PT (10.0-12.5) sec INR (<1.2) APTT (22.0-30.0) sec D-Dimer (<0.60) mg/L FEU Sodium (137-145) mmol/L Potassium (3.5-5.1) mmol/L Chloride (98-107) mmol/L Carbon Dioxide (22-30) mmol/L Anion Gap mmol/L BUN (9-20) mg/dL Creatinine (0.66-1.25) mg/dL Est GFR (CKD-EPI)AfAm (>60 ml/min/1.73 sqM) Est GFR (CKD-EPI)NonAf (>60 ml/min/1.73 sqM) Glucose (74-99) mg/dL Calcium (8.4-10.2) mg/dL Magnesium (1.6-2.3) mg/dL Total Bilirubin (0.2-1.3) mg/dL AST (17-59) U/L ALT (4-49) U/L Alkaline Phosphatase (38-126) U/L Troponin I <0.012 (0.000-0.034) ng/mL Total Protein (6.3-8.2) g/dL Albumin (3.5-5.0) g/dL Disposition Clinical Impression: Chest pain Disposition: ADMITTED IP TO THIS HOSP Is patient prescribed a controlled substance at d/c from ED?: No Referrals: Bryon Phan DO [Primary Care Provider] - 1-2 days Time of Disposition: 20:14
[2024-04-26] MEDS: NITROGLYCERIN OINT 1 INCH/GM PACKET TOPICAL STA (18:09)
[2024-04-26 18:14] LABS: Basophils # (A) 0.1 k/uL (0-0.2); Basophils % (A) 1 %; Eosinophils # (A) 0.2 k/uL (0-0.7); Eosinophils % (A) 3 %; HCT 46.7 % (39.0-53.0); HGB 15.2 gm/dL (13.0-17.5); Lymphocytes # (A) 2.1 k/uL (1.0-4.8); Lymphocytes % (A) 24 %; MCH 31.6 pg (25.0-35.0); MCHC 32.6 g/dL (31.0-37.0); MCV 97.1 fL (80.0-100.0); Mean Platelet Volume 7.5; Monocytes # (A) 0.5 k/uL (0-1.0); Monocytes % (A) 5 %; Neutrophils # (A) 5.9 k/uL (1.3-7.7); Neutrophils % (A) 66 %; Platelet Count 330 k/uL (150-450); RBC 4.81 m/uL (4.30-5.90); RDW 13.2 % (11.5-15.5); WBC 8.9 k/uL (3.8-10.6)
[2024-04-26 18:49] LABS: ALT 48 U/L (4-49); AST 32 U/L (17-59); African American GFR (CKD) >90 (>60 ml/min/1.73 sqM); Albumin 3.7 g/dL (3.5-5.0); Alkaline Phosphatase 90 U/L (38-126); Anion Gap 5 mmol/L; Blood Urea Nitrogen 14 mg/dL (9-20); Calcium 8.9 mg/dL (8.4-10.2); Carbon Dioxide 27 mmol/L (22-30); Chloride 104 mmol/L (98-107); Glucose 106 mg/dL (74-99); Magnesium 2.1 mg/dL (1.6-2.3); Non-African American GFR(CKD) >90 (>60 ml/min/1.73 sqM); Potassium 3.5 mmol/L (3.5-5.1); Sodium 136 mmol/L (137-145); Total Bilirubin 0.4 mg/dL (0.2-1.3)
[2024-04-26 19:00] LABS: Prothrombin Time 10.5 sec (10.0-12.5)
--- NOTE | 2024-04-26 19:27 | XR ---
EXAMINATION TYPE: XR chest 2V DATE OF EXAM: 04/26/2024 COMPARISON: 12/28/2023 HISTORY: 53-year-old male with chest pain TECHNIQUE: PA and lateral views FINDINGS: Heart normal size. Aorta and pulmonary vasculature within normal limits. Similar mild interstitial pr ominence. No consolidation or pleural effusion. Electronic device projecting over the lateral aspect of the left upper chest. IMPRESSION: Chronic changes. No acute process seen.
[2024-04-26] MEDS ORDERED: NITROGLYCERIN SL TABS 0.4 MG TAB SUBLINGUAL PRN (20:14)
[2024-04-26] MEDS: ASPIRIN 81 MG PO STA (20:22)
[2024-04-27] MEDS: NITROGLYCERIN OINT 1 INCH/GM PACKET TOPICAL SCH (01:36)
--- NOTE | 2024-04-27 10:12 | P.CRDCN ---
History of Present Illness History of present illness: HISTORY OF PRESENTING ILLNESS This is a pleasant 53-year-old with past medical history significant for hypertension, tobacco abuse,hyperlipidemia who presents for chest pain. He states he was recently [facility] secondary to some numbness and concern of TIA and an event monitor was placed. He states he was standing by the side of full and had sudden onset of chest pain with some associated nausea and shortness of breath. Symptoms lasted for approximately 20 minutes and EMS was called and brought patient to the ER. By the time he presented to the ER his chest pain had improved. He denies any recurrence of chest pain. Denies any similar symptoms in the past. He believes he had a heart catheterization at [facility] years ago however nothing in [facility]. REVIEW OF SYSTEMS At the time of my exam: CONSTITUTIONAL: Denies fever or chills. CARDIOVASCULAR: +chest pain, +shortness of breath, no orthopnea, PND or palpitations. RESPIRATORY: Denies cough. GASTROINTESTINAL: Denies abdominal pain, diarrhea, constipation, nausea or vomiting. MUSCULOSKELETAL: Denies myalgias. NEUROLOGIC: Denies numbness, tingling or weakness. ENDOCRINE: Denies fatigue, weight change, polydipsia or polyurina. GENITOURINARY: Denies burning, hematuria or urgency with micturation. HEMATOLOGIC: Denies history of anemia or bleeding. PHYSICAL EXAMINATION Vital signs reviewed. CONSTITUTIONAL: No apparent distress. HEENT: Head is normocephalic. Pupils are equal, round. Sclerae anicteric. Mucous membranes of the mouth are moist. No JVD. No carotid bruit. CHEST EXAMINATION: Lungs are clear to auscultation. No chest wall tenderness is noted on palpation or with deep breathing. HEART EXAMINATION: Regular rate and rhythm. S1, S2 heard. No murmurs, gallops or rub. ABDOMEN: Soft, nontender. Positive bowel sounds. EXTREMITIES: 2+ peripheral pulses, no lower extremity edema and no calf tenderness. NEUROLOGIC EXAMINATION: Patient is awake, alert and oriented x3. ASSESSMENT atypical chest pain Hypertension Hyperlipidemia Tobacco abuse Recent TIA type symptoms status post event monitor PLAN patient had recent echo performed at [facility] which showed preserved EF without significant valvular disease. Given multiple risk factors we will check stress echo to evaluate his chest pain. If this is normal patient may be discharged home with outpatient follow-up. Past Medical History Past Medical History: Chest Pain / Angina, Hyperlipidemia, Hypertension History of Any Multi-Drug Resistant Organisms: None Reported Past Surgical History: Cholecystectomy, Heart Catheterization With Stent, Hernia Repair Additional Past Surgical History / Comment(s): SURGERY TO ABSCESS ON BUTTOCKS. patient unable to remember date of heart cath with stent-states done [facility] Past Anesthesia/Blood Transfusion Reactions: No Reported Reaction Date of Last Stent Placement:: unknown Past Psychological History: No Psychological Hx Reported Smoking Status: Current every day smoker Past Alcohol Use History: None Reported Additional Past Alcohol Use History / Comment(s): SMOKES <1/2 PPD SINCE AGE 15 Past Drug Use History: Marijuana Additional Drug Use History / Comment(s): marijuana daily - Past Family History Father Family Medical History: Cancer Medications and Allergies Home Medications Medication Instructions Recorded Confirmed Type Atorvastatin [Lipitor] 40 mg PO DIRECTED 04/26/24 04/26/24 History Butalb/Acetaminophen/Caffeine 1 tab PO Q6H PRN 04/26/24 04/26/24 History [Esgic 50-325-40 mg Tablet] Guaifenesin/Dextromethorphan 5 ml PO Q6H PRN 04/26/24 04/26/24 History [Guaifenesin-Dm 100-10 mg/5 ml] Pantoprazole [Protonix] 40 mg PO DAILY 04/26/24 04/26/24 History amLODIPine BESYLATE/BENAZEPRIL 1 cap PO DAILY 04/26/24 04/26/24 History [Lotrel 10-40 mg Capsule] Allergies Allergy/AdvReac Type Severity Reaction Status Date / Time No Known Allergies Allergy Verified 04/26/24 19:19 Physical Exam Vitals: Vital Signs Temp Pulse Pulse Resp BP BP Pulse Ox 04/27/24 03:00 98.1 F 60 18 112/74 96 04/27/24 02:00 60 18 04/26/24 22:55 98.0 F 60 18 136/69 97 04/26/24 21:31 62 16 156/80 98 04/26/24 19:20 62 16 142/72 97 04/26/24 17:22 98.4 F 74 16 159/72 96 Intake and Output 04/26/24 04/27/24 04/27/24 22:59 06:59 14:59 Output Total 950 Balance -950 Output: Urine 950 Other: Weight 127.006 kg 127.006 kg Results 04/26/24 18:03 04/26/24 18:03 Cardiac Enzymes 04/26/24 04/26/24 04/26/24 Range/Units 18:03 18:03 21:02 AST 32 (17-59) U/L Troponin I <0.012 <0.012 (0.000-0.034) ng/mL 04/27/24 Range/Units 00:30 AST (17-59) U/L Troponin I <0.012 (0.000-0.034) ng/mL Coagulation 04/26/24 Range/Units 18:03 PT 10.5 (10.0-12.5) sec APTT 25.0 (22.0-30.0) sec CBC 04/26/24 Range/Units 18:03 WBC 8.9 (3.8-10.6) k/uL RBC 4.81 (4.30-5.90) m/uL Hgb 15.2 (13.0-17.5) gm/dL Hct 46.7 (39.0-53.0) % Plt Count 330 (150-450) k/uL Comprehensive Metabolic Panel 04/26/24 Range/Units 18:03 Sodium 136 L (137-145) mmol/L Potassium 3.5 (3.5-5.1) mmol/L Chloride 104 (98-107) mmol/L Carbon Dioxide 27 (22-30) mmol/L BUN 14 (9-20) mg/dL Creatinine 0.87 (0.66-1.25) mg/dL Glucose 106 H (74-99) mg/dL Calcium 8.9 (8.4-10.2) mg/dL AST 32 (17-59) U/L ALT 48 (4-49) U/L Alkaline Phosphatase 90 (38-126) U/L Total Protein 6.0 L (6.3-8.2) g/dL Albumin 3.7 (3.5-5.0) g/dL Current Medications Generic Name Dose Route Start Last Admin Trade Name Freq PRN Reason Stop Dose Admin Aspirin 325 mg 04/27/24 09:00 Aspirin 325 Mg Tab PO DAILY DESMOND Nitroglycerin 0.4 mg 04/26/24 20:14 Nitroglycerin Sl Tabs 0.4 Mg Tab SUBLINGUAL Q5M PRN Chest Pain Nitroglycerin 1 inch 07/16/24 00:00 04/27/24 05:47 Nitroglycerin Oint 1 Inch/Gm Packet TOPICAL Not Given Q6HR DESMOND Intake and Output 04/26/24 04/27/24 04/27/24 22:59 06:59 14:59 Output Total 950 Balance -950 Output: Urine 950 Other: Weight 127.006 kg 127.006 kg 04/26/24 18:03 04/26/24 18:03
--- NOTE | 2024-04-27 11:28 | P.HPIM ---
History of Present Illness H&P Date: 04/27/24 Chief Complaint: Chest pain History and Physical and Discharge Summary: This is a 53-year-old gentleman with past medical history significant for chest pain, angina, hypertension, hyperlipidemia , obesity ,ongoing nicotine dependence, marijuana use and multiple other medical issues presented to the ER with complaints of sharp chest pain. Reports he was sitting by the pool, watching his grandkids, was overheated , sweating, was not drinking water - states he rarely drinks water .Developed sudden onset sharp midsternal chest discomfort accompanied by diaphoresis, shortness of breath, nausea, and lightheadedness lasting for approximately 20 minutes. EMS transported patient to the ER. Received 4 baby aspirin's by EMS. on arrival, chest pain had eased up. Currently denies chest pain, palpitations or shortness of breath. 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 Possible TIA, event monitor placed for 2 weeks and is scheduled to be discontinued a week from this Friday. reports he smokes 10 cigarettes to 1 pack daily and smokes 1 joint of marijuana every night .also discloses he has been under enormous stress. Troponins negative x 3, EKG reported sinus rhythm, chest x-ray reported no acute process. Afebrile, maintaining O2 sats of high 90s on room air. Blood pressure on admission 159/72. Hematology, coagulation/D-dimer and chemistry panels unremarkable. Evaluated by cardiology, recommendations noted including stress echo ordered. Review of Systems ROS Statement: Those systems with pertinent positive or pertinent negative responses have been documented in the HPI. ROS Other: All systems not noted in ROS Statement are negative. Past Medical History Past Medical History: Chest Pain / Angina, Hyperlipidemia, Hypertension History of Any Multi-Drug Resistant Organisms: None Reported Past Surgical History: Cholecystectomy, Heart Catheterization With Stent, Hernia Repair Additional Past Surgical History / Comment(s): SURGERY TO ABSCESS ON BUTTOCKS. patient unable to remember date of heart cath with stent-states done at [facility] Past Anesthesia/Blood Transfusion Reactions: No Reported Reaction Date of Last Stent Placement:: unknown Past Psychological History: No Psychological Hx Reported Smoking Status: Current every day smoker Past Alcohol Use History: None Reported Additional Past Alcohol Use History / Comment(s): SMOKES <1/2 PPD SINCE AGE 15 Past Drug Use History: Marijuana Additional Drug Use History / Comment(s): marijuana daily - Past Family History Father Family Medical History: Cancer Medications and Allergies Home Medications Medication Instructions Recorded Confirmed Type Atorvastatin [Lipitor] 40 mg PO DIRECTED 04/26/24 04/26/24 History Butalb/Acetaminophen/Caffeine 1 tab PO Q6H PRN 04/26/24 04/26/24 History [Esgic 50-325-40 mg Tablet] Guaifenesin/Dextromethorphan 5 ml PO Q6H PRN 04/26/24 04/26/24 History [Guaifenesin-Dm 100-10 mg/5 ml] Pantoprazole [Protonix] 40 mg PO DAILY 04/26/24 04/26/24 History amLODIPine BESYLATE/BENAZEPRIL 1 cap PO DAILY 04/26/24 04/26/24 History [Lotrel 10-40 mg Capsule] Escitalopram Oxalate [Lexapro] 10 mg PO DAILY #30 tab 04/27/24 Rx Allergies Allergy/AdvReac Type Severity Reaction Status Date / Time No Known Allergies Allergy Verified 04/26/24 19:19 Physical Exam Vitals: Vital Signs Temp Pulse Pulse Resp BP BP Pulse Ox 04/27/24 03:00 98.1 F 60 18 112/74 96 04/27/24 02:00 60 18 04/26/24 22:55 98.0 F 60 18 136/69 97 04/26/24 21:31 62 16 156/80 98 04/26/24 19:20 62 16 142/72 97 04/26/24 17:22 98.4 F 74 16 159/72 96 Intake and Output 04/26/24 04/27/24 04/27/24 22:59 06:59 14:59 Output Total 950 Balance -950 Output: Urine 950 Other: Weight 127.006 kg 127.006 kg PHYSICAL EXAM: VITAL SIGNS: [As above] GENERAL: Well-developed, well-nourished, alert and oriented x 3, sitting up in bed, no acute distress HEENT: Normocephalic, atraumatic,PERRL conjunctivae normal. eyes normal. NECK: Supple, no JVD. No thyroid enlargement. No LNs CARDIOVASCULAR: S1, S2 regular rate and rhythm, no murmur RESPIRATION: Unlabored, equal air entry, clear to auscultation. ABDOMEN: Soft, obese, nontender . No guarding. no masses palpable. No ascites, No hepatosplenomegaly.Bowel sounds heard. LEGS: No edema. no swelling, no calf tenderness NERVOUS SYSTEM: Cranial N 2-12 grossly normal. Moves all 4 limbs. No focal deficits. Strength and sensation grossly intact.. Skin: Warm and dry, no rash Results CBC & Chem 7: 04/26/24 18:03 04/26/24 18:03 Labs: Abnormal Lab Results - Last 24 Hours (Table) 04/26/24 Range/Units 18:03 Sodium 136 L (137-145) mmol/L Glucose 106 H (74-99) mg/dL Total Protein 6.0 L (6.3-8.2) g/dL Thrombosis Risk Factor Assmnt - Choose All That Apply Any of the Below Risk Factors Present?: Yes Each Factor Represents 1 point: Age 41-60 years Other Risk Factors: No Other congenital or acquired thrombophilia - If yes, enter type in comment: No Thrombosis Risk Factor Assessment Total Risk Factor Score: 1 Thrombosis Risk Factor Assessment Level: Low Risk Assessment and Plan Assessment: Atypical chest pain, troponins negative x 3. Recent echo performed at [facility], reporting preserved EF without significant valvular disease as per cardiology. Reporting significant stress, Lexapro initiated. Recent TIA symptoms, status post event monitor Hypertension Hyperlipidemia Morbid obesity, BMI 38 Ongoing nicotine dependence Marijuana use Plan: Continue on current medication regimen ,monitoring and symptomatic treatment.NPO, stress echo pending. Nitroglycerin discontinued given headache; IV magnesium and IV Tylenol ordered .lifestyle changes discussed- smoking both nicotine and marijuana cessation reinforced. Lexapro initiated. patient will be discharged home today in a stable condition with guarded prognosis pending stress echo, final DC recommendations and clearance per cardiology. Discharge Medication List Atorvastatin [Lipitor] 40 mg PO DIRECTED 04/26/24 [History] Butalb/Acetaminophen/Caffeine [Esgic 50-325-40 mg Tablet] 1 tab PO Q6H PRN 04/26/24 [History] Guaifenesin/Dextromethorphan [Guaifenesin-Dm 100-10 mg/5 ml] 5 ml PO Q6H PRN 04/26/24 [History] Pantoprazole [Protonix] 40 mg PO DAILY 07/15/24 [History] amLODIPine BESYLATE/BENAZEPRIL [Lotrel 10-40 mg Capsule] 1 cap PO DAILY 04/26/24 [History] Escitalopram Oxalate [Lexapro] 10 mg PO DAILY #30 tab 04/27/24 [Rx] The impression and plan of care has been dictated as directed. : I performed a history and examination of this patient, discussed the same with the dictator. I agree with the dictator's note ,documented as a scribe. Any additional findings or plans will be noted.
[2024-04-27] MEDS: ACETAMINOPHEN IV (For NPO) 1,000 MG in EMPTY BAG 1 BAG IVPB STA (13:25)
[2024-04-27] MEDS: MAGNESIUM SULFATE-D5W PMX 1 GM in DEXTROSE/WATER 1 100ML.BAG IVPB ONE (13:26)
[2024-04-27] MEDS: ASPIRIN 325 MG TAB PO SCH (13:26)
[2024-04-27] MEDS: ESCITALOPRAM 10 MG TAB PO SCH (15:35)
[2024-04-27 15:37] VITALS: BP 126/83; PULSE 63; RESP 16; TEMP 98.7
--- NOTE | 2024-04-27 15:46 | CA ---
Stress Echo Report Ney Cavanaugh Age: 53 Gender: M : 1970 Exam Date: 04/27/2024 11:34 Exam Location: [place] Ht (in): 72 Wt (lb): 280 Ordering Physician: Jonh De Leon DO ([email or web address]) Referring Physician: jonh de leon Calender Machine Operator: Denise Adrian RDCS Technologist Procedure CPT: Indication: re: CP ICD-9 Codes: Rhythm: Patient History: CP, NUMBNESS FACE/NECK, HTN, CHOL, TOB, CT, CATH Cardiac Medications: SEE CHART Medications in past 24 hours: Contrast: Definity Stress Results Protocol: Zachary Total dose(mL): 3 Exercise Duration (min:sec): 7:[address] Depression (mm): Angina Score: Hernandez Score: METS: 7.6 Resting HR: 85 Resting BP: 145 / 61 Peak HR: 141 Peak BP: 216 / 77 Max Predicted HR: 165 85 % Max Predicted HR Target HR: 140 Double Product: 11600 Stress Summary: BP Response: Reason for Termination: Reached target heart rate or work-load, Maximal effort/unable to continue Cardiac Symptoms: Test terminated after reaching target heart rate (85% max predicted) ECG Analysis Resting ECG: Stress ECG: Arrhythmia: Echo Analysis Resting Echo: Peak Echo Analysis: MEASUREMENTS (Male/Female) Normal Values CONCLUSIONS Patient underwent exercise stress echo with a Zachary protocol treadmill stress test. Patient exercised into Stage 2 for a total of 7 minutes and 44 seconds reaching a total of 7.6 METS. Patient's maximum heart rate was 141 which represented 85% age- predicted maximum heart rate. Stress EKG portion: At baseline patient's EKG showed normal sinus rhythm, normal axis, no significant ST-T wave abnormalities. At peak exercise, EKG showed no significant change from baseline. Stress echo portion: 2-D echocardiogram was performed in the parasternal long, personal short, apical 2 and apical four-chamber views at rest, peak exercise and in recovery. At baseline, echocardiogram showed left ventricular ejection fraction 55% without wall motion abnormalities. With peak exercise, echocardiogram shows improvement in left ventricular ejection fraction, increase contractility, decrease in left ventricular end systolic dimension without wall motion abnormalities consistent with a normal response to exercise. Conclusions: 1. Normal EKG and echo response to exercise without evidence of inducible ischemia. 2. Good exercise capacity. Dr. Jonh De Leon DO (Electronically Signed) Final Date: 27 April 2024 15:45
[2024-04-27 18:07] LABS: Chol/HDL Ratio 6.01 Ratio; LDL Cholesterol,Calculated 103.9 mg/dL (0.0-131.0)
== END 2024-04-27 17:52 | disposition home or self-care (01) ==
LOC: EC 17:20 → 6NMEDSUR 20:15 → 1SOBS 04-27 11:25
PROVIDERS: ADMIT Family Medicine; ATTEND Family Medicine
DX: R07.89 Other chest pain (principal); I10 Essential (primary) hypertension; E78.5 Hyperlipidemia, unspecified; F12.90 Cannabis use, unspecified, uncomplicated; F17.200 Nicotine dependence, unspecified, uncomplicated; E66.01 Morbid (severe) obesity due to excess calories; Z68.38 Body mass index [BMI] 38.0-38.9, adult; Z95.5 Presence of coronary angioplasty implant and graft; Z79.899 Other long term (current) drug therapy
CPT/HCPCS: 96365; 96366; 96375; 99285; 36415; 93005; 93351; 85379; 80061; 80053; 83735; 84484 ×2; 85025; 85610; 85730; 71046; G0378 ×2; J3475; J0131

== ENCOUNTER 2024-06-17 14:25 | Inpatient (IN) | payer BC ==
[2024-06-17] MEDS ORDERED: VERAPAMIL 2.5 MG/ML 2 ML AMP ONE (14:35)
[2024-06-17] MEDS ORDERED: HEPARIN SODIUM 1,000 UN/ML (10ML VL) ONE (14:35)
[2024-06-17] MEDS: NITROGLYCERIN OINT 1 INCH/GM PACKET TOPICAL STA (14:35)
[2024-06-17] MEDS ORDERED: LIDOCAINE 1% INJ 10MG/ML (20 ML MDV) ONE (14:35)
[2024-06-17] MEDS ORDERED: fentaNYL (PF) 50 MCG/ML 2 ML AMP ONE (14:36)
[2024-06-17] MEDS: ATORVASTATIN 80 MG TAB PO STA (14:37)
[2024-06-17] MEDS ORDERED: NALOXONE 0.4 MG/ML 1 ML VIAL IV PRN (14:37)
[2024-06-17] MEDS: HEPARIN SODIUM 1,000 UN/ML (10ML VL) IV ONE ×2 (14:38→15:03)
[2024-06-17] MEDS: SODIUM CHLORIDE 0.9% 1,000 ML IV ONE (14:38)
--- NOTE | 2024-06-17 14:41 | XR ---
EXAMINATION TYPE: XR chest 1V portable DATE OF EXAM: 06/17/2024 COMPARISON: 04/26/2024 HISTORY: S/P pain TECHNIQUE: Single frontal view of the chest is obtained. FINDINGS: There is no focal air space opacity, pleural effusion, or pneumothorax seen. The cardiac silhouette size is within normal limits. The osseous structures are intact. IMPRESSION: No acute process.
[2024-06-17] MEDS: METOPROLOL TARTRATE 50 MG TAB PO STA (14:45)
--- NOTE | 2024-06-17 14:46 | ED ---
General Adult HPI - General Chief complaint: Chest Pain Stated complaint: STEMI Time Seen by Provider: 06/17/24 14:28 Source: patient, EMS, RN notes reviewed, old records reviewed Mode of arrival: EMS Limitations: no limitations - History of Present Illness Initial comments: 53-year-old male presenting with sudden onset chest pain. Associated with naus ea, diaphoresis. No prior history of CAD. Prehospital EKG does have concern for ST segment elevation in the inferior leads. Patient given aspirin nitroglycerin by paramedics during transport. Patient has pain in the upper back and left arm. No abdominal pain. No lower extremity pain. Patient has history of hypertension he is a current smoker. - Related Data Home Medications Medication Instructions Recorded Confirmed amLODIPine BESYLATE/BENAZEPRIL 1 cap PO DAILY 04/26/24 06/17/24 [Lotrel 10-40 mg Capsule] Allergies Allergy/AdvReac Type Severity Reaction Status Date / Time No Known Allergies Allergy Verified 06/17/24 14:33 Review of Systems ROS Statement: Those systems with pertinent positive or pertinent negative responses have been documented in the HPI. ROS Other: All systems not noted in ROS Statement are negative. Past Medical History Past Medical History: Chest Pain / Angina, Hyperlipidemia, Hypertension History of Any Multi-Drug Resistant Organisms: None Reported Past Surgical History: Cholecystectomy, Heart Catheterization With Stent, Hernia Repair Additional Past Surgical History / Comment(s): SURGERY TO ABSCESS ON BUTTOCKS. patient unable to remember date of heart cath with stent-states done at [facility] Past Anesthesia/Blood Transfusion Reactions: No Reported Reaction Date of Last Stent Placement:: unknown Past Psychological History: No Psychological Hx Reported Smoking Status: Current every day smoker Past Alcohol Use History: None Reported Past Drug Use History: Marijuana - Past Family History Father Family Medical History: Cancer General Exam Limitations: no limitations General appearance: alert, in distress Head exam: Present: atraumatic, normocephalic Eye exam: Present: normal appearance, PERRL Neck exam: Present: normal inspection. Absent: tenderness, meningismus Respiratory exam: Present: normal lung sounds bilaterally. Absent: respiratory distress, wheezes Cardiovascular Exam: Present: regular rate, normal rhythm, other (Symmetric radial and DP pulses) GI/Abdominal exam: Present: soft. Absent: distended, tenderness Extremities exam: Present: normal inspection, normal capillary refill Neurological exam: Present: alert, oriented X3 Psychiatric exam: Present: anxious Skin exam: Present: diaphoretic Course Vital Signs 06/17/24 06/17/24 14:30 14:41 Temperature 98.6 F Pulse Rate 104 H 76 Respiratory 24 Rate Blood Pressure 170/120 164/101 O2 Sat by Pulse 100 99 Oximetry - Reevaluation(s) Reevaluation #1: 06/17/24 14:30 patient evaluated by cardiology in the emergency department, will be taken urgently for heart catheterization for ST segment elevated ND. Dr. Max at bedside Medical Decision Making - Medical Decision Making Was pt. sent in by a medical professional or institution (, EFREN, DIRECTOR OF EMPLOYEE DEVELOPMENT, urgent care, hospital, or long-term...) When possible be specific @ -No Did you speak to anyone other than the patient for history (EMS, parent, family, police, friend...)? What history was obtained from this source @ -Paramedics Did you review nursing and triage notes (agree or disagree)? Why? @ -I reviewed and agree with nursing and triage notes Were old charts reviewed (outside hosp., previous admission, EMS record, old EKG, old radiological studies, urgent care reports/EKG's, long-term records)? Report findings @ -No old charts were reviewed Differential Chest Pain: Stable Angina, Unstable Angina, STEMI, NSTEMI Aortic Dissection, Pneumothorax, Musculoskeletal, Esophageal Spasm GERD, Cholecystitis, Pancreatitis, Zoster, this is not meant to be an all-inclusive list. EKG interpreted by me (3pts min.). @ -Sinus rhythm rate of 96, AR interval 149, QRS duration 103, QTc 418, ST segment elevation in 2 3 and aVF with reciprocal change. STEMI X-rays interpreted by me (1pt min.). @ -Single view chest x-ray shows normal cardiac silhouette no acute findings CT interpreted by me (1pt min.). @ -None done U/S interpreted by me (1pt. min.). @ -None done What testing was considered but not performed or refused? (CT, X-rays, U/S, labs)? Why? @ -None What meds were considered but not given or refused? Why? @ -None Did you discuss the management of the patient with other professionals (professionals i.e. , PA, DIRECTOR OF EMPLOYEE DEVELOPMENT, lab, RT, psych nurse, vp digital marketing social media and crm, water resources business segment leader, teacher, weapons electrical engineering officer, trimming caser)? Give summary @Dr. Phan will admit, Dr. Max covering for cardiology able to evaluate patient in the emergency department Was smoking cessation discussed for >3mins.? @ -No Was critical care preformed (if so, how long)? @ -No Were there social determinants of health that impacted care today? How? (Homelessness, low income, unemployed, alcoholism, drug addiction, transportation, low edu. Level, literacy, decrease access to med. care, longterm, rehab)? @Current smoker Was there de-escalation of care discussed even if they declined (Discuss DNR or withdrawal of care, Hospice)? DNR status @ -No What co-morbidities impacted this encounter? (DM, HTN, Smoking, COPD, CAD, Cancer, CVA, ARF, Chemo, Hep., AIDS, mental health diagnosis, sleep apnea, morbid obesity)? @ -[Hypertension, current smoker Was patient admitted / discharged? Hospital course, mention meds given and route, prescriptions, significant lab abnormalities, going to OR and other pertinent info. @ -53-year-old male with central chest pain which began just prior to arrival. EKG showing ST segment elevation with reciprocal change in aVL and V2. 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 Patient did report pain in his back however this was upper back and felt to be related to ACS rather than dissection. He has symmetric blood pressures in both arms, symmetric pulse exam and EKG is consistent with ST segment elevated ND. Laboratory testing pending at the time of this dictation. Undiagnosed new problem with uncertain prognosis? @ -[No Drug Therapy requiring intensive monitoring for toxicity (Heparin, Nitro, Insulin, Cardizem)? @ -No Were any procedures done? @ -No Diagnosis/symptom? @ -[STEMI Acute, or Chronic, or Acute on Chronic? @ -Acute Uncomplicated (without systemic symptoms) or Complicated (systemic symptoms)? @ -Complicated Side effects of treatment? @ -[No Exacerbation, Progression, or Severe Exacerbation? @ -No Poses a threat to life or bodily function? How? (Chest pain, USA, ND, pneumonia, PE, COPD, DKA, ARF, appy, cholecystitis, CVA, Diverticulitis, Homicidal, Suicidal, threat to staff... and all critical care pts) @ -[Yes, ACS, acute ND Critical Care Time Critical Care Time: Yes Total Critical Care Time: 35 Disposition Clinical Impression: ST elevation myocardial infarction (STEMI) Disposition: ADMITTED IP TO THIS HOSP Condition: Serious Is patient prescribed a controlled substance at d/c from ED?: No
[2024-06-17] MEDS: fentaNYL (PF) 50 MCG/ML 2 ML AMP IVP ONE (14:53)
[2024-06-17] MEDS: LIDOCAINE 1% INJ 10MG/ML (20 ML MDV) SQ ONE (14:55)
[2024-06-17] MEDS: VERAPAMIL SYRINGE (5 MG/10 ML) INTRAARTER ONE (14:57)
--- NOTE | 2024-06-17 14:57 | P.CRDCN ---
History of Present Illness History of present illness: HISTORY OF PRESENT ILLNESS: This is a 53-year-old male with a past medical history significant for hypertension and smoking. 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 We have been asked to see the patient in consultation for STEMI. Patient examined at the bedside in the emergency room. Patient presented to the hospital with a chief complaint of chest discomfort. He states about an hour ago he was changing a tire on his car when he began to have chest discomfort. He states the pain was in the middle of his chest and in his upper back. Patient states earlier this morning he was feeling in his normal state of health without any chest pain or pressure. He does report having an episode of chest pain a few months ago that was similar in characteristics but not as severe. He did come to the emergency room at that time for evaluation. He underwent stress echocardiogram on April 27, 2024 which was negative for ischemia. The patient's blood pressures were noted to be elevated in the emergency room with readings of 170s over 120s. The patient does take amlodipine/benazepril on a daily basis. He states he did take this medication today around noon. DIAGNOSTICS: - EKG reveals ST elevation inferiorly with reciprocal ST depression - Chest xray negative for acute process. - Laboratory data: Not available at the time of this dictation - Current home cardiac medications include amlodipine-benazepril 10-40 mg daily REVIEW OF SYSTEMS: At the time of my exam: CONSTITUTIONAL: Denies fever or chills. HEENT: Denies blurred vision, vision changes, or eye pain. Denies hemoptysis CARDIOVASCULAR: Denies chest pain. Denies orthopnea. Denies PND. Denies palpitations RESPIRATORY: Denies shortness of breath. GASTROINTESTINAL: Denies abdominal pain. Denies nausea or vomiting. HEMATOLOGIC: Denies bleeding disorders. GENITOURINARY: Denies any blood in urine. SKIN: Denies pruitis. Denies rash. PHYSICAL EXAM: VITAL SIGNS: Reviewed. GENERAL: Well-developed in no acute distress. HEENT: Head is normocephalic. Pupils are equal, round. Sclerae anicteric. Mucous membranes of the mouth are moist. Neck supple. No JVD or thyromegaly LUNGS: Respirations even and unlabored. Lungs essentially clear to auscultation bilaterally. HEART: Regular rate and rhythm. S1 and S2 heard. ABDOMEN: Soft. Nondistended. Nontender. EXTREMITIES: Normal range of motion. No clubbing or cyanosis. Peripheral pulses intact. No lower extremity edema NEUROLOGIC: Awake and alert. Oriented x 3. ASSESSMENT: Inferior STEMI Hypertension, uncontrolled on admission Nicotine dependence PLAN: Patient examined in the ER with Dr. Max. Patient presenting with inferior STEMI. Patient given aspirin by EMS. Patient given Lipitor, metoprolol, and heparin bolus in ER. Recommend urgent cardiac catheterization. Patient agreeable. Patient taken to the [facility] in stable condition Check lipid panel (LDL 103 in 05/05) and hemoglobin A1c (was 6.2% in 2021). Continue aspirin 81 mg daily and Lipitor 80 mg at night. LDL goal less than 70. Smoking cessation recommended. Patient to be referred to [place] quit line upon discharge Obtain 2D echo to assess cardiac structure and function post procedure Further recommendations pending patient course Nurse practitioner note has been reviewed by physician. Signing provider agrees with the documented findings, assessment, and plan of care documented by [employer] as a scribe. Past Medical History Past Medical History: Chest Pain / Angina, Hyperlipidemia, Hypertension History of Any Multi-Drug Resistant Organisms: None Reported Past Surgical History: Cholecystectomy, Heart Catheterization With Stent, Hernia Repair Additional Past Surgical History / Comment(s): SURGERY TO ABSCESS ON BUTTOCKS. patient unable to remember date of heart cath with stent-states done at [facility] Past Anesthesia/Blood Transfusion Reactions: No Reported Reaction Date of Last Stent Placement:: unknown Past Psychological History: No Psychological Hx Reported Smoking Status: Current every day smoker Past Alcohol Use History: None Reported Past Drug Use History: Marijuana - Past Family History Father Family Medical History: Cancer Medications and Allergies Home Medications Medication Instructions Recorded Confirmed Type amLODIPine BESYLATE/BENAZEPRIL 1 cap PO DAILY 04/26/24 06/17/24 History [Lotrel 10-40 mg Capsule] Allergies Allergy/AdvReac Type Severity Reaction Status Date / Time No Known Allergies Allergy Verified 06/17/24 14:33 Physical Exam Vitals: Vital Signs Temp Pulse Resp BP Pulse Ox 06/17/24 14:41 76 164/101 99 06/17/24 14:30 98.6 F 104 H 24 170/120 100 Intake and Output 06/16/24 06/17/24 06/17/24 22:59 06:59 14:59 Other: Weight 127.006 kg Results 06/17/24 14:34 06/17/24 14:34 Current Medications Generic Name Dose Route Start Last Admin Trade Name Freq PRN Reason Stop Dose Admin Sodium Chloride 1,000 mls @ 999 mls/hr 06/17/24 14:37 06/17/24 14:38 Saline 0.9% IV 06/17/24 15:37 999 mls/hr .Q1H1M ONE Administration Naloxone HCl 0.2 mg 06/17/24 14:37 Naloxone 0.4 Mg/Ml 1 Ml Vial IV Q2M PRN Opioid Reversal Intake and Output 06/16/24 06/17/24 06/17/24 22:59 06:59 14:59 Other: Weight 127.006 kg Patient Weight 06/18/24 06:59 Weight 127.006 kg
[2024-06-17] MEDS ORDERED: TICAGRELOR 90 MG TAB ONE (15:00)
[2024-06-17] MEDS: IV FLUID CONTINUATION 1,000 ML IV ONE (15:00)
[2024-06-17] MEDS: TICAGRELOR 90 MG TAB PO ONE (15:00)
[2024-06-17 15:09] LABS: HCT 47.1 % (39.0-53.0); HGB 15.9 gm/dL (13.0-17.5); MCH 32.3 pg (25.0-35.0); MCHC 33.8 g/dL (31.0-37.0); MCV 95.7 fL (80.0-100.0); Platelet Count 316 k/uL (150-450); RBC 4.92 m/uL (4.30-5.90); RDW 13.5 % (11.5-15.5); WBC 10.9 k/uL (3.8-10.6)
[2024-06-17 15:10] LABS: Basophils # (A) 0.1 k/uL (0-0.2); Basophils % (A) 1 %; Eosinophils # (A) 0.2 k/uL (0-0.7); Eosinophils % (A) 2 %; Lymphocytes # (A) 1.9 k/uL (1.0-4.8); Lymphocytes % (A) 17 %; Mean Platelet Volume 6.9; Monocytes # (A) 0.5 k/uL (0-1.0); Monocytes % (A) 4 %; Neutrophils # (A) 8.1 k/uL (1.3-7.7); Neutrophils % (A) 74 %
[2024-06-17] MEDS: IOPAMIDOL-370 100ML BTL INJ ONE ×2 (15:17→15:46)
[2024-06-17] MEDS: MIDAZOLAM 2 MG/2 ML VIAL IVP ONE (15:19)
[2024-06-17] MEDS: NITROGLYCERIN 1000MCG/10ML SYRINGE INTRACORON ONE (15:21)
[2024-06-17 15:32] LABS: ALT 34 U/L (4-49); AST 38 U/L (17-59); African American GFR (CKD) >90 (>60 ml/min/1.73 sqM); Albumin 4.3 g/dL (3.5-5.0); Alkaline Phosphatase 115 U/L (38-126); Anion Gap 13 mmol/L; Blood Urea Nitrogen 15 mg/dL (9-20); Calcium 9.6 mg/dL (8.4-10.2); Carbon Dioxide 21 mmol/L (22-30); Chloride 102 mmol/L (98-107); Glucose 198 mg/dL (74-99); Non-African American GFR(CKD) >90 (>60 ml/min/1.73 sqM); Sodium 136 mmol/L (137-145); Total Bilirubin 0.6 mg/dL (0.2-1.3); Total Protein 6.9 g/dL (6.3-8.2)
[2024-06-17 15:37] LABS: INR 0.9 (<1.2); Partial Thromboplastin Time 25.3 sec (22.0-30.0); Prothrombin Time 10.3 sec (10.0-12.5)
[2024-06-17] MEDS ORDERED: ONDANSETRON 4 MG/2 ML VIAL ONE (15:58)
[2024-06-17] MEDS: ONDANSETRON 4 MG/2 ML VIAL IVP ONE (15:59)
[2024-06-17] MEDS ORDERED: MAG HYDROX/AL HYDROX/SIMETH 30 ML CUP PO PRN (16:06)
[2024-06-17] MEDS ORDERED: ATROPINE SULFATE 0.1 MG/ML 10ML SYRINGE IV PRN (16:06)
[2024-06-17] MEDS ORDERED: RX INFO: IV CONTRAST WAS GIVEN 1 EACH MISC MISCELLANE PRN (16:06)
--- NOTE | 2024-06-17 16:17 | P.CARDCATH ---
Date of Procedure: 06/17/24 Description of Procedure: Cardiac Catheterization: The patient is a 53-year-old male with known history of chronic tobacco use, hypertension who presented with evidence of acute inferior wall myocardial infarction, he was evaluated by Dr. Max. Recommendations were made regarding cardiac catheterization, the risks and the complications were discussed with the patient who is in full understanding and agreement. Procedure Description: Patient was brought to cardiovascular lab director in fasting semi-sedated state after receiving Fentanyl and Benadryl achieiving moderate conscious sedated state. Using Xylocaine Anesthesia and modified Seldinger technique, a 6-St Helenian sheath was introduced in the right radial artery . Subsequently, selective coronary angiography was performed using a 5-St Helenian 3.5 bend left Dontae [address] Helenian right Dontae guiding catheter. Multiple views of the coronary artery including hemiaxial views were obtained. The 5 St Helenian pigtail catheter was used to cross the aortic valve and LVEDP was calculated. PCI: After cannulating the right coronary artery with the 6 St Helenian 4 bend right Dontae a 0.014 BMW J-wire was positioned in the distal RCA subsequently a penumbra catheter was introduced and 2 runs were done without removal of significant thrombotic material, at that time after removing the catheter a 3.0 x 15 mm trek balloon was advanced and 2 inflations at 10 markus were done. After removing the balloon a [place] eye IVUS catheter was introduced and images revealed significant thrombotic material with a distal lumen measuring 6.5 to 7 mm in diameter and no significant calcifications. After removing the catheter a 5.0 x 33 mm Xience alvina point stent was advanced and deployed at 16 maruks. Repeat IVUS imaging was performed and subsequently a 6.0 x 20 mm NC trek balloon was advanced and 2 inflations at 10 markus were done. Subsequently the wire was removed images were obtained and revealed stable successful stenting. Following that, catheter and sheath were removed. Hemostasis was obtained with deployment of vascular band . There was no immediate complication. Patient was returned to room in stable condition. Of note, the patient received a total of 3000 units of intravenous heparin as well as intra-arterial verapamil. His ACT was monitored. He received an oral loading dose of Brilinta. He had EKG changes with the inflations that improved. He had chest discomfort that was getting gradually better with some ST segment elevation inferiorly consistent with the acute marginal occlusion. His infra wall ST segment elevation resolved. Findings: Left main: This is a large size vessel, bifurcating into LAD and left circumflex, left main has no obstructive disease. LAD: This is a large size vessel, tapers down in the distal third, giving rise to 2 diagonal branch. The LAD and its branches have no significant obstructive disease Left circumflex: This is a nondominant vessel giving rise to 2 obtuse marginal branch. The mid left circumflex has mild intimal disease of 20% the rest of the vessel has no high-grade stenosis RCA: This is a very large size vessel bifurcating into PDA and PLV. The mid segment has an area of stenosis up to 95% with haziness consistent with intracoronary thrombus and ruptured plaque. The rest of the vessel has no high- grade stenosis Left Ventriculogram: Not performed Hemodynamics: There was no gradient across aortic valve, LVEDP was 20-24 mmHg Conclusion: 1. Severe stenosis in the long segment of the mid RCA, the vessel is large in caliber and there is evidence consistent with intracoronary thrombus 2. Mild disease in the left circumflex 3. Right dominance 4. Successful stenting of the mid RCA with reduction of stenosis from 95% to less than 5% with intravascular ultrasound imaging. MARY-3 flow was noted. The patient had slow flow into the acute marginal that was improving by the end of the procedure. Recommendations: The patient will continue on aspirin and Brilinta without any interruption for 1 year in addition to aggressive coronary risks modifications, attempting to maintain LDL below 50 mg/dL in addition to smoking cessation. The findings and the recommendations were discussed with the patient and the family and they were in full understanding and agreement. Duration of sedation is 69 minutes.
[2024-06-17 16:22] LABS: Glucose,Whole Blood 154 mg/dL (70-110)
[2024-06-17] MEDS: MIDAZOLAM 1 MG/ML 5 ML VIAL IV STA (16:49)
[2024-06-17] MEDS: amLODIPine 5 MG TAB PO STA (16:50)
[2024-06-17] MEDS: SODIUM CHLORIDE 0.9% 1,000 ML in EMPTY BAG 1 BAG IV SCH (16:50)
[2024-06-17] MEDS ORDERED: Magnesium Replacement Protocol 1 EACH MISC MISCELLANE PRN (18:13)
[2024-06-17] MEDS ORDERED: Potassium Replacement Protocol 1 EACH MISC MISCELLANE PRN (18:13)
[2024-06-17] MEDS ORDERED: Phosphorus Replacement Protoco 1 EACH MISC MISCELLANE PRN (18:13)
[2024-06-17] MEDS: ACETAMINOPHEN TAB 325 MG TAB PO PRN (18:51)
[2024-06-17] MEDS: METOPROLOL TARTRATE 25 MG TAB PO SCH (20:12)
[2024-06-17] MEDS: ATORVASTATIN 80 MG TAB PO SCH (20:12)
[2024-06-17] MEDS: MORPHINE SULFATE 2 MG/ML SYRINGE IVP STA ×2 (21:45→23:09)
[2024-06-17] MEDS: NITROGLYCERIN SL TABS 0.4 MG TAB SUBLINGUAL PRN (23:05)
[2024-06-18 02:56] LABS: Chol/HDL Ratio 5.07 Ratio; LDL Cholesterol,Calculated 124.3 mg/dL (0.0-131.0)
[2024-06-18 03:45] LABS: Basophils % (A) 0 %; Eosinophils # (A) 0.2 k/uL (0-0.7); Eosinophils % (A) 2 %; HCT 43.3 % (39.0-53.0); Lymphocytes % (A) 14 %; MCH 31.4 pg (25.0-35.0); MCHC 32.4 g/dL (31.0-37.0); Mean Platelet Volume 6.8; Monocytes # (A) 0.7 k/uL (0-1.0); Monocytes % (A) 5 %; Neutrophils # (A) 11.5 k/uL (1.3-7.7); Neutrophils % (A) 79 %; Platelet Count 309 k/uL (150-450); RBC 4.47 m/uL (4.30-5.90); RDW 13.8 % (11.5-15.5); WBC 14.7 k/uL (3.8-10.6)
[2024-06-18 03:53] LABS: African American GFR (CKD) >90 (>60 ml/min/1.73 sqM); Anion Gap 4 mmol/L; Blood Urea Nitrogen 11 mg/dL (9-20); Calcium 8.9 mg/dL (8.4-10.2); Carbon Dioxide 26 mmol/L (22-30); Chloride 106 mmol/L (98-107); Glucose 137 mg/dL (74-99); Non-African American GFR(CKD) >90 (>60 ml/min/1.73 sqM); Potassium 4.1 mmol/L (3.5-5.1); Sodium 136 mmol/L (137-145)
[2024-06-18] MEDS: amLODIPine 10 MG TAB PO SCH (08:33)
[2024-06-18] MEDS: ASPIRIN 81 MG PO SCH (08:33)
[2024-06-18] MEDS: lisinopriL 20 MG TAB PO SCH (08:33)
[2024-06-18] MEDS: TICAGRELOR 90 MG TAB PO SCH (08:34)
--- NOTE | 2024-06-18 09:57 | CA ---
Transthoracic Echo Report Name: Ney Cavanaugh Age: 53 Gender: M : 1970 Exam Date: 06/18/2024 07:53 Exam Location: [facility] Ht (in): 72 Wt (lb): 280 Ordering Physician: Ines Reis Attending/Referring Phys: [id number], Smiley Police Chief Lillie Mancia, ELVIA Procedure CPT: Indications: STEMI, LV function Cardiac Hx: stent, HTN, NC, SMOKER Technical Quality: Good Contrast 1: Total Dose (mL): Contrast 2: Total Dose (mL): MEASUREMENTS (Male / Female) Normal Values 2D ECHO LV Diastolic Diameter PLAX 4.5 cm 4.2 - 5.9 / 3.9 - 5.3 cm LV Systolic Diameter PLAX 3.6 cm IVS Diastolic Thickness 1.4 cm 0.6 - 1.0 / 0.6 - 0.9 cm LVPW Diastolic Thickness 1.3 cm 0.6 - 1.0 / 0.6 - 0.9 cm LV Relative Wall Thickness 0.6 RV Internal Dim ED PLAX 3.8 cm LA Systolic Diameter LX 4.5 cm 3.0 - 4.0 / 2.7 - 3.8 cm LV Diastolic Volume MOD 4C 112.0 cm??? LV Systolic Volume MOD 4C 62.1 cm??? LV Ejection Fraction MOD 4C 44.5 % LV Cardiac Index MOD 4C 1097.8 cm???/min???m??? LV Diastolic Length 4C 8.8 cm LV Systolic Length 4C 7.1 cm LV Diastolic Volume MOD 2C 81.1 cm??? LV Systolic Volume MOD 2C 35.8 cm??? LV Ejection Fraction MOD 2C 55.8 % LV Cardiac Index MOD 2C 996.9 cm???/min???m??? LV Diastolic Length 2C 8.2 cm LV Systolic Length 2C 6.6 cm LA Volume 65.0 cm??? 18 - 58 / 22 - 52 cm??? LA Volume Index 25.1 cm???/m??? 16 - 28 cm???/m??? M-MODE Aortic Root Diameter MM 3.6 cm AV Cusp Separation MM 2.4 cm DOPPLER AV Peak Velocity 150.8 cm/s AV Peak Gradient 9.1 mmHg MV Area PHT 3.0 cm??? Mitral E Point Velocity 81.9 cm/s Mitral A Point Velocity 80.4 cm/s Mitral E to A Ratio 1.0 MV Deceleration Time 255.6 ms FINDINGS Left Ventricle Left ventricular ejection fraction is estimated at 55-60 %. Left ventricular cavity size normal. Mildly increased septal wall thickness. No obvious regional wall motion abnormalities. Right Ventricle Mild right ventricular dilatation. Unable to estimate the right ventricular systolic pressure. Right Atrium Normal right atrial size. No right atrial thrombus or mass seen. Left Atrium Mildly increased left atrial diameter. Mildly increased left atrial volume. Mildly increased left atrial area. Mitral Valve Structurally normal mitral valve. No mitral stenosis, regurgitation or prolapse. Aortic Valve Trileaflet aortic valve. No aortic valve stenosis or regurgitation. Tricuspid Valve Structurally normal tricuspid valve. No tricuspid stenosis, regurgitation or prolapse. Pulmonic Valve Structurally normal pulmonic valve. Trace pulmonic regurgitation. Pericardium No pericardial or pleural effusion. Aorta Normal size aortic root and proximal ascending aorta. CONCLUSIONS Normal LV size and systolic function. No significant abnormality on the Doppler exam. No pericardial effusion Previewed by: Dr. Sarah Young MD (Electronically Signed) Final Date: 18 June 2024 09:56
--- NOTE | 2024-06-18 10:20 | P.PN ---
Subjective Progress Note Date: 06/18/24 The patient is a 53-year-old male who presented to the hospital with an inferior posterior myocardial infarction. He underwent stenting of the RCA yesterday with Dr. Morejon. The patient tolerated the procedure well. Overnight he states he did have some difficulty lying flat and feels more comfortable up in the recliner chair. No current chest discomfort. GENERAL: Well-appearing, well-nourished and in no acute distress. NECK: Supple without JVD or thyromegaly. LUNGS: Breath sounds clear to auscultation bilaterally. Respiration equal and unlabored. No wheezes, rales or rhonchi. HEART: Regular rate and rhythm without murmurs, rubs or gallops. S1 and S2 heard. EXTREMITIES: Normal range of motion, no edema. No clubbing or cyanosis. Peripheral pulses intact and strong. TELEMETRY: 2 runs of ventricular tachycardia overnight IMPRESSION: Inferior posterior myocardial infarction Status post stenting of the RCA 2 runs of ventricular tachycardia Hypertension Current smoker PLAN: Switch to carvedilol for better blood pressure control Switch to valsartan Patient may be downgraded to 3S I am dictating on behalf of Dr David Max's history/physical and assessment/plan. Objective - Vital Signs Vital signs: Vital Signs Temp 98.4 F 06/18/24 08:00 Pulse 63 06/18/24 08:00 Resp 21 06/18/24 08:00 BP 148/84 06/18/24 08:00 Pulse Ox 95 06/18/24 08:00 FiO2 Intake & Output 06/17/24 06/18/24 06/18/24 18:59 06:59 18:59 Intake Total 1181 635 350 Output Total 750 1525 0 Balance 431 -890 350 Weight 127.006 kg 127.9 kg Intake: IV 800 508 Sodium Chloride 0.9% 1, 508 000 ml In Empty Bag 1 bag @ 1 ML/KG/HR 127.006 mls /hr IV .Q7H53M [facility] Rx#: [id number] Intake, IV Titration 381 127 Amount Sodium Chloride 0.9% 1, 381 127 000 ml In Empty Bag 1 bag @ 1 ML/KG/HR 127.006 mls /hr IV .Q7H53M [facility] Rx#: [id number] Oral 350 Output: Urine 750 1525 0 Other: Voiding Method Urinal Urinal # Voids 1 1 # Bowel Movements 1 1 - Labs CBC & Chem 7: 06/18/24 03:13 06/18/24 03:13 Labs: Abnormal Lab Results - Last 24 Hours (Table) 06/17/24 06/17/24 06/17/24 Range/Units 14:34 14:34 14:34 WBC 10.9 H (3.8-10.6) k/uL Neutrophils # 8.1 H (1.3-7.7) k/uL Sodium 136 L (137-145) mmol/L Carbon Dioxide 21 L (22-30) mmol/L Glucose 198 H (74-99) mg/dL POC Glucose (mg/dL) (70-110) mg/dL Hemoglobin A1c 6.4 H (<=6.0) % HDL Cholesterol (40.00-60.00) mg/dL 06/17/24 06/17/24 06/18/24 Range/Units 14:34 16:20 03:13 WBC (3.8-10.6) k/uL Neutrophils # (1.3-7.7) k/uL Sodium 136 L (137-145) mmol/L Carbon Dioxide (22-30) mmol/L Glucose 137 H (74-99) mg/dL POC Glucose (mg/dL) 154 H (70-110) mg/dL Hemoglobin A1c (<=6.0) % HDL Cholesterol 37.30 L (40.00-60.00) mg/dL 06/18/24 Range/Units 03:13 WBC 14.7 H (3.8-10.6) k/uL Neutrophils # 11.5 H (1.3-7.7) k/uL Sodium (137-145) mmol/L Carbon Dioxide (22-30) mmol/L Glucose (74-99) mg/dL POC Glucose (mg/dL) (70-110) mg/dL Hemoglobin A1c (<=6.0) % HDL Cholesterol (40.00-60.00) mg/dL
--- NOTE | 2024-06-18 12:48 | P.HPIM ---
History of Present Illness H&P Date: 06/18/24 Chief Complaint: Chest pain This is a 53-year-old gentleman with past medical history significant for chest pain, angina, hypertension, hyperlipidemia , obesity ,ongoing nicotine dependence, marijuana use and multiple other medical issues presented to the ER with complaints of midsternal chest discomfort radiating to his left arm and upper back while changing a car tire. On admission, hypertensive, BP 170/120, compliant with taken his Lotrel earlier in the morning. EKG reported acute STEMI, inferior, proceeded immediately to the [facility]., underwent stenting of the mid RCA. currently in the ICU, sitting up in chair, no acute distress. Staff reports 2 X 19 beat runs of V. tach in the paving machine operator hours. Electrolytes within normal limits telemetry sinus rhythm, blood pressure better controlled, maintaining O2 sats in the 90s on room air. Denies chest pain, p alpitations or shortness of breath. Review of Systems ROS Statement: Those systems with pertinent positive or pertinent negative responses have been documented in the HPI. ROS Other: All systems not noted in ROS Statement are negative. Past Medical History Past Medical History: Chest Pain / Angina, Hyperlipidemia, Hypertension History of Any Multi-Drug Resistant Organisms: None Reported Past Surgical History: Cholecystectomy, Heart Catheterization With Stent, Hernia Repair Additional Past Surgical History / Comment(s): SURGERY TO ABSCESS ON BUTTOCKS. patient unable to remember date of heart cath with stent-states [facility] Past Anesthesia/Blood Transfusion Reactions: No Reported Reaction Date of Last Stent Placement:: unknown Past Psychological History: No Psychological Hx Reported Smoking Status: Current every day smoker Past Alcohol Use History: None Reported Past Drug Use History: Marijuana - Past Family History Father Family Medical History: Cancer Medications and Allergies Home Medications Medication Instructions Recorded Confirmed Type amLODIPine BESYLATE/BENAZEPRIL 1 cap PO DAILY 04/26/24 06/17/24 History [Lotrel 10-40 mg Capsule] Allergies Allergy/AdvReac Type Severity Reaction Status Date / Time No Known Allergies Allergy Verified 06/17/24 14:33 Physical Exam Vitals: Vital Signs Temp Pulse Resp BP BP Pulse Ox 06/18/24 06:00 57 L 26 H 146/84 96 06/18/24 05:30 65 12 141/81 95 06/18/24 05:00 62 8 L 133/75 97 09/06/24 04:30 60 19 155/86 94 L 06/18/24 04:00 97.9 F 66 19 150/85 95 06/18/24 03:30 59 L 24 146/76 97 06/18/24 03:00 61 22 144/93 95 06/18/24 02:30 61 20 156/84 95 06/18/24 02:00 55 L 12 126/70 98 06/18/24 01:30 63 21 151/82 96 06/18/24 01:00 59 L 25 H 130/76 96 06/18/24 00:30 68 20 143/82 95 06/18/24 00:00 97.8 F 58 L 9 L 133/61 96 06/17/24 23:44 59 L 19 133/61 95 06/17/24 23:30 62 21 145/81 93 L 06/17/24 23:00 66 26 H 128/72 96 06/17/24 22:30 64 0 L 143/87 95 06/17/24 22:00 62 15 134/78 95 06/17/24 21:30 68 16 140/87 96 06/17/24 21:00 57 L 15 123/71 97 06/17/24 20:30 58 L 25 H 120/98 95 06/17/24 20:00 98.1 F 73 17 144/85 96 06/17/24 19:30 71 17 129/70 95 06/17/24 19:00 70 19 148/83 93 L 06/17/24 18:00 69 18 143/85 95 06/17/24 17:30 73 153/86 95 06/17/24 17:20 67 17 143/92 97 06/17/24 17:10 71 18 143/92 96 06/17/24 17:00 72 16 147/88 96 06/17/24 16:40 97.6 F 69 21 141/95 98 06/17/24 16:30 71 11 L 170/89 98 06/17/24 14:41 97.6 F 76 16 164/101 170/89 98 06/17/24 14:30 98.6 F 104 H 24 170/120 100 Intake and Output 06/17/24 06/18/24 06/18/24 22:59 06:59 14:59 Intake Total 1689 127 Output Total 1400 875 Balance 289 748 Intake: IV 1181 127 Sodium Chloride 0.9% 1, 381 127 000 ml In Empty Bag 1 bag @ 1 ML/KG/HR 127.006 mls /hr IV .Q7H53M [facility] Rx#: [id number] Intake, IV Titration 508 Amount Sodium Chloride 0.9% 1, 508 000 ml In Empty Bag 1 bag @ 1 ML/KG/HR 127.006 mls /hr IV .Q7H53M [facility] Rx#: [id number] Output: Urine 1400 875 Other: Voiding Method Urinal Urinal # Voids 1 1 # Bowel Movements 0 1 Weight 127.9 kg PHYSICAL EXAM: VITAL SIGNS: [As above] GENERAL: Well-developed, well-nourished, alert and oriented x 3, sitting up in chair, no acute distress HEENT: Normocephalic, atraumatic,PERRL conjunctivae normal. eyes normal. NECK: Supple, no JVD. No thyroid enlargement. No LNs CARDIOVASCULAR: S1, S2 regular rate and rhythm, no murmur RESPIRATION: Unlabored, equal air entry, clear to auscultation. ABDOMEN: Soft, obese, nontender . No guarding. no masses palpable. No ascites, No hepatosplenomegaly.Bowel sounds heard. LEGS: No edema. no swelling, no calf tenderness NERVOUS SYSTEM: Cranial N 2-12 grossly normal. Moves all 4 limbs. No focal deficits. Strength and sensation grossly intact.. Skin: Warm and dry, no rash Results CBC & Chem 7: 06/18/24 03:13 06/18/24 03:13 Labs: Abnormal Lab Results - Last 24 Hours (Table) 06/17/24 06/17/24 06/17/24 Range/Units 14:34 14:34 14:34 WBC 10.9 H (3.8-10.6) k/uL Neutrophils # 8.1 H (1.3-7.7) k/uL Sodium 136 L (137-145) mmol/L Carbon Dioxide 21 L (22-30) mmol/L Glucose 198 H (74-99) mg/dL POC Glucose (mg/dL) (70-110) mg/dL Hemoglobin A1c 6.4 H (<=6.0) % HDL Cholesterol (40.00-60.00) mg/dL 06/17/24 06/17/24 06/18/24 Range/Units 14:34 16:20 03:13 WBC (3.8-10.6) k/uL Neutrophils # (1.3-7.7) k/uL Sodium 136 L (137-145) mmol/L Carbon Dioxide (22-30) mmol/L Glucose 137 H (74-99) mg/dL POC Glucose (mg/dL) 154 H (70-110) mg/dL Hemoglobin A1c (<=6.0) % HDL Cholesterol 37.30 L (40.00-60.00) mg/dL 06/18/24 Range/Units 03:13 WBC 14.7 H (3.8-10.6) k/uL Neutrophils # 11.5 H (1.3-7.7) k/uL Sodium (137-145) mmol/L Carbon Dioxide (22-30) mmol/L Glucose (74-99) mg/dL POC Glucose (mg/dL) (70-110) mg/dL Hemoglobin A1c (<=6.0) % HDL Cholesterol (40.00-60.00) mg/dL Thrombosis Risk Factor Assmnt - Choose All That Apply Each Factor Represents 1 point: Acute [place], Age 41-60 years Other Risk Factors: No Other congenital or acquired thrombophilia - If yes, enter type in comment: No Thrombosis Risk Factor Assessment Total Risk Factor Score: 2 Thrombosis Risk Factor Assessment Level: Low Risk Assessment and Plan Assessment: Acute inferior [place] status post cardiac catheterization with stenting of mid RCA Ventricular tachycardia x 2 runs Hypertension Hyperlipidemia Morbid obesity, BMI 38 Ongoing nicotine dependence Marijuana use Hemoglobin A1c 6.4 Plan: Continue on current medication regimen ,monitoring and symptomatic treatment. Maintained on aspirin, Brilinta, Coreg,, valsartan. Smoking sensation including marijuana, reinforced. Weight loss reinforced. Increase ambulation as tolerated. The impression and plan of care has been dictated as directed. : I performed a history and examination of this patient, discussed the same with the dictator. I agree with the dictator's note ,documented as a scribe. Any additional findings or plans will be noted.
[2024-06-18] MEDS: PANTOPRAZOLE 40 MG/10 ML VIAL IVP SCH (13:17)
[2024-06-18] MEDS ORDERED: Magnesium Replacement Protocol 1 EACH MISC MISCELLANE PRN (14:15)
[2024-06-18] MEDS: MAGNESIUM SULFATE-D5W PMX 1 GM in DEXTROSE/WATER 1 100ML.BAG IVPB ONE (14:18)
[2024-06-18 16:52] VITALS: BMI 38.2
[2024-06-18] MEDS: carvediloL 3.125 MG TAB PO SCH (17:17)
[2024-06-18] MEDS: ZOLPIDEM 5 MG TAB PO PRN (21:41)
[2024-06-19 08:00] LABS: Basophils # (A) 0.1 k/uL (0-0.2); Basophils % (A) 1 %; Eosinophils # (A) 0.3 k/uL (0-0.7); Eosinophils % (A) 3 %; HCT 44.6 % (39.0-53.0); HGB 14.7 gm/dL (13.0-17.5); Lymphocytes # (A) 1.9 k/uL (1.0-4.8); Lymphocytes % (A) 17 %; MCH 32.2 pg (25.0-35.0); MCV 97.7 fL (80.0-100.0); Mean Platelet Volume 6.9; Monocytes # (A) 0.6 k/uL (0-1.0); Monocytes % (A) 5 %; Neutrophils # (A) 8.4 k/uL (1.3-7.7); Neutrophils % (A) 73 %; Platelet Count 268 k/uL (150-450); RBC 4.56 m/uL (4.30-5.90); RDW 13.9 % (11.5-15.5); WBC 11.5 k/uL (3.8-10.6)
[2024-06-19 08:51] VITALS: PULSE 77
[2024-06-19 08:52] LABS: African American GFR (CKD) >90 (>60 ml/min/1.73 sqM); Anion Gap 8 mmol/L; Blood Urea Nitrogen 9 mg/dL (9-20); Calcium 9.1 mg/dL (8.4-10.2); Carbon Dioxide 24 mmol/L (22-30); Chloride 106 mmol/L (98-107); Glucose 128 mg/dL (74-99); Magnesium 2.2 mg/dL (1.6-2.3); Non-African American GFR(CKD) >90 (>60 ml/min/1.73 sqM); Potassium 3.9 mmol/L (3.5-5.1); Sodium 138 mmol/L (137-145)
[2024-06-19] MEDS: VALSARTAN 160 MG TAB PO SCH (09:22)
[2024-06-19 12:14] VITALS: BP 125/70; RESP 16; TEMP 99.1
--- NOTE | 2024-06-19 16:41 | P.DS ---
Providers Date of admission: 06/17/24 14:38 Expected date of discharge: 06/19/24 Attending physician: Bryon Phan Consults: 06/17/24 14:37 Consult Physician Stat Consulting Provider: David Max Consult Reason/Comments: STEMI Do you want consulting provider notified?: Already Contacted 06/17/24 16:06 Consult Physician Routine Consulting Provider: [facility] Consult Reason/Comments: Post Interventional Patient Do you want consulting provider notified?: Already Contacted Primary care physician: Bryon Phan Hospital Course: Discharge diagnoses: Acute inferior [place] status post cardiac catheterization with stenting of mid RCA Ventricular tachycardia x 2 runs Hypertension Hyperlipidemia Morbid obesity, BMI 38 Ongoing nicotine dependence Marijuana use Hemoglobin A1c 6.4 Okay to discharge per cardiology, continue aspirin, Brilinta, statin, Coreg, valsartan. Outpatient follow with cardiology. Hospital course: This is a 53-year-old gentleman with past medical history significant for chest pain, angina, hypertension, hyperlipidemia , obesity ,ongoing nicotine dependence, marijuana use and multiple other medical issues presented to the ER with complaints of midsternal chest discomfort radiating to his left arm and upper back while changing a car tire. On admission, hypertensive, BP 170/120, compliant with taken his Lotrel earlier in the morning. EKG reported acute STEMI, inferior, proceeded immediately to the Canvassing [facility]., underwent stenting of the mid RCA. currently in the ICU, sitting up in chair, no acute distress. Staff reports 2 X 19 beat runs of V. tach in the education analyst hours. Electrolytes within normal limits telemetry sinus rhythm, blood pressure better controlled, maintaining O2 sats in the 90s on room air. Denies chest pain, pa lpitations or shortness of breath. 06/19no further episodes of V. tach, discussed with cardiology, okay to discharge. Continue aspirin, Brilinta, statin, Coreg, valsartan. Outpatient follow-up with cardiology. PHYSICAL EXAMINATION: GENERAL: The patient is A&O x3, NAD HEENT: EOMI, Sclerae anicteric, Moist Mucous membranes Neck: Supple, Non tender, No JVD PULMONARY: Equal breath souds B/L, No wheezing, No crackles. CARDIOVASCULAR: S1, S2 present. No murmurs, rubs, or gallops. ABDOMEN: Soft, nontender, nondistended, normoactive bowel sounds. No guarding or rebound tenderness. MUSCULOSKELETAL: No edema, No cyanosis. No clubbing. Normal ROM. Intact peripheral pulses. EXTREMITIES: No cyanosis, clubbing, or pedal edema. NEUROLOGICAL: CN 2-12 grossly intact. No FND SKIN: No rashes. Dictation was produced using [employer] dictation software. please excuse any grammatical, word or spelling errors. Plan - Discharge Summary Discharge Rx Participant: Yes New Discharge Prescriptions: New carvediloL [Coreg] 3.125 mg PO BID-W/MEALS #60 tab Aspirin 81 mg PO DAILY #90 tab Ticagrelor [Brilinta] 90 mg PO BID #60 tab Valsartan [Diovan] 320 mg PO DAILY #60 tab Atorvastatin [Lipitor] 80 mg PO HS #30 tab Nitroglycerin Sl Tabs [Nitrostat] 0.4 mg SUBLINGUAL Q5M PRN #14 tab PRN Reason: Chest Pain Continue amLODIPine BESYLATE/BENAZEPRIL [Lotrel 10-40 mg Capsule] 1 cap PO DAILY Discharge Medication List amLODIPine BESYLATE/BENAZEPRIL [Lotrel 10-40 mg Capsule] 1 cap PO DAILY 04/26/24 [History] Aspirin 81 mg PO DAILY #90 tab 06/19/24 [Rx] Atorvastatin [Lipitor] 80 mg PO HS #30 tab 06/19/24 [Rx] Nitroglycerin Sl Tabs [Nitrostat] 0.4 mg SUBLINGUAL Q5M PRN #14 tab 06/19/24 [Rx] Ticagrelor [Brilinta] 90 mg PO BID #60 tab 06/19/24 [Rx] Valsartan [Diovan] 320 mg PO DAILY #60 tab 06/19/24 [Rx] carvediloL [Coreg] 3.125 mg PO BID-W/MEALS #60 tab 06/19/24 [Rx] Follow up Appointment(s)/Referral(s): David Max MD [STAFF PHYSICIAN] - 1 Week (please call and make follow up) Bryon Phan DO [Primary Care Provider] - 1-2 days (please call and make follow- up) Patient Instructions/Handouts: *[facility] - After Heart Catheterization - Rating Examiner Instructions, Heart Attack (DC), Heart Catheterization (DC), After Radial Heart Catheterization (GEN) Discharge Disposition: HOME SELF-CARE
== END 2024-06-19 14:56 | disposition home or self-care (01) | DRG 322 ==
LOC: EC 14:25 → 2SICU 14:38 → 3SCARD 06-18 16:42
PROVIDERS: ADMIT Family Medicine; ATTEND Family Medicine
PROC: 027034Z Dilation of Coronary Artery, One Artery with Drug-eluting Intraluminal Device, Percutaneous Approach (ICD-10-PCS; principal; 2024-06-17 14:29)
PROC: 4A023N7 Measurement of Cardiac Sampling and Pressure, Left Heart, Percutaneous Approach (ICD-10-PCS; 2024-06-17 14:29)
PROC: B2111ZZ Fluoroscopy of Multiple Coronary Arteries using Low Osmolar Contrast (ICD-10-PCS; 2024-06-17 14:29)
DX: I21.19 ST elevation (STEMI) myocardial infarction involving other coronary artery of inferior wall (principal); I47.20 Ventricular tachycardia, unspecified; I10 Essential (primary) hypertension; E66.01 Morbid (severe) obesity due to excess calories; Z68.38 Body mass index [BMI] 38.0-38.9, adult; E78.5 Hyperlipidemia, unspecified; F17.200 Nicotine dependence, unspecified, uncomplicated; F12.90 Cannabis use, unspecified, uncomplicated; Z79.02 Long term (current) use of antithrombotics/antiplatelets; Z79.899 Other long term (current) drug therapy; Z79.82 Long term (current) use of aspirin; Z95.5 Presence of coronary angioplasty implant and graft
CPT/HCPCS: 71045; 80048; 80053; 80061; 83036; 83735; 84484; 85025; 85610; 85730; 92973; 92978; 93005; 93306; 93458; 96374; 99291

== ENCOUNTER 2025-02-22 06:11 | Day surgery (SDC) | payer BC ==
[2025-02-17 15:42] VITALS: BMI 39.4
[~2025-02-22 06:11] MED LIST changes: +ALPRAZolam 0.25 MG TAB PO PRN; +ALPRAZolam 0.5 MG TAB PO PRN; +HEPARIN SODIUM,PORCINE (1 ML) 2,500 UNIT in SODIUM CHLORIDE 0.9% 250 ML IRRIGATION PRN; +HEPARIN SODIUM,PORCINE 10,000 UNIT in SODIUM CHLORIDE 0.9% 1,000 ML IRRIGATION PRN; -LACTATED RINGERS 1,000 ML IV SCH; -LIDOCAINE 1% (10MG/ML) FOR IV START INTRADERMA PRN; +NITROGLYCERIN SL TABS 0.4 MG TAB SUBLINGUAL PRN
[2025-02-22] MEDS: IV FLUID CONTINUATION 1,000 ML IV ONE (06:32)
[2025-02-22] MEDS: SODIUM CHLORIDE 0.9% 1,000 ML in EMPTY BAG 1 BAG IV SCH ×2 (06:46→23:09)
[2025-02-22] MEDS: ASPIRIN 325 MG TAB PO STA (06:46)
[2025-02-22 06:51] LABS: Glucose,Whole Blood 162 mg/dL (70-110)
[2025-02-22] MEDS: HEPARIN SODIUM,PORCINE 10,000 UNIT in SODIUM CHLORIDE 0.9% 1,000 ML IRRIGATION ONE (07:12)
[2025-02-22] MEDS: HEPARIN SODIUM,PORCINE (1 ML) 2,500 UNIT in SODIUM CHLORIDE 0.9% 250 ML IRRIGATION ONE (07:12)
[2025-02-22] MEDS: fentaNYL (PF) 50 MCG/ML 2 ML AMP IVP ONE (07:38)
[2025-02-22] MEDS: LIDOCAINE 1% INJ 10MG/ML (20 ML MDV) SQ ONE (07:40)
[2025-02-22] MEDS: VERAPAMIL SYRINGE (5 MG/10 ML) INTRAARTER ONE (07:43)
[2025-02-22] MEDS: MIDAZOLAM 2 MG/2 ML VIAL IVP ONE (08:02)
[2025-02-22] MEDS: CLOPIDOGREL 75 MG TAB PO ONE (08:02)
[2025-02-22] MEDS: IOPAMIDOL-370 100ML BTL INJ ONE ×2 (08:36→09:02)
[2025-02-22] MEDS ORDERED: MAG HYDROX/AL HYDROX/SIMETH 30 ML CUP PO PRN (09:16)
[2025-02-22] MEDS ORDERED: RX INFO: IV CONTRAST WAS GIVEN 1 EACH MISC MISCELLANE PRN (09:16)
[2025-02-22] MEDS ORDERED: NITROGLYCERIN SL TABS 0.4 MG TAB SUBLINGUAL PRN (09:16)
[2025-02-22] MEDS ORDERED: ATROPINE SULFATE 0.1 MG/ML 10ML SYRINGE IV PRN (09:16)
[2025-02-22] MEDS ORDERED: ZOLPIDEM 5 MG TAB PO PRN (09:16)
--- NOTE | 2025-02-22 09:26 | P.CARDCATH ---
Date of Procedure: 02/22/25 Description of Procedure: Cardiac Catheterization: The patient is a 54-year-old male with known history of hypertension, hyperlipidemia, diabetes and chronic tobacco use who presented in June 2024 with an acute inferior wall myocardial infarction and underwent stenting of the RCA, postdilated with a 6.0 balloon. Recently he has been complaining of exertional chest discomfort and dyspnea. He has been evaluated by Dr. Max. Recommendations were made regarding cardiac catheterization, the risks and the complications were discussed with the patient who is in full understanding and agreement. Procedure Description: Patient was brought to construction laborer in fasting semi-sedated state after receiving Fentanyl and Benadryl achieiving moderate conscious sedated state. Using Xylocaine Anesthesia and modified Seldinger technique, a 6-Andorran sheath was introduced in the right radial artery . Subsequently, selective coronary angiography was performed using a 5-Andorran 3.5 bend Dontae catheter. Multiple views of the coronary artery including hemiaxial views were obtained. The 5 And[place]ran pigtail catheter was used to cross the aortic valve and LVEDP was calculated. PCI: After removing the catheters a 6 [place] AL 0.75 guiding catheter was introduced into the system and after cannulating the right coronary ostium a 0.014 BMW J- wire was advanced across the lesion and positioned distally. Attempt to advance a 3.0 x 15 mm trek balloon were unsuccessful in spite of using a guide liner. There was difficulty in advancing the balloon in the proximal segment. At that point the balloon was removed and a whisper J.014 was advanced next to the first 1, positioned distally and subsequently a 2.5 x 12 mm trek balloon was advanced and multiple inflations were done. After removing the balloon a [employer] [place] eye IVUS catheter was introduced and revealed significant intimal hyperplasia in the mid and distal segment of the stent with a lumen measuring between 5.5 and 6 mm in diameter. After removing the balloon a 5.0 x 18 mm Xience alvina point stent was advanced and deployed at 16 markus. Inflations with the same balloon in the proximal segment of the stent were done at 16 markus. After removing the balloon attempt to advance a 6.0 x 20 mm NC trek and a 6.0 x 12 mm NC trek in the proximal segment of the RCA were unsuccessful in spite of using double wire with a 0.014 BMW J-wire and subsequently the guide liner. At that point the wire and the balloon was removed images were obtained and revealed stable successful stenting. Following that, catheter and sheath were removed. Hemostasis was obtained with deployment of vascular band . There was no immediate complication. Patient was returned to room in stable condition. Of note, the patient received a total of 10,000 units of intravenous heparin as well as intra-arterial verapamil. He was continued on clopidogrel. He had chest discomfort that resolved at the end of the procedure without significant chest pain. Findings: Left main: This is a short size vessel, bifurcating into LAD and left circumflex, left main has no significant obstructive disease LAD: This is a large size vessel, reaching to the apex, giving rise to a large diagonal branch in the midsegment. The LAD tapers down in the distal third. Has diffuse intimal disease of 20 to 30% throughout its course without high- grade stenosis. Left circumflex: This is a nondominant vessel giving rise to a large obtuse marginal branch that has 20 to 30% plaque in the midsegment without high-grade stenosis RCA: This is a large dominant vessel bifurcating distally to PDA and PLV the RCA in the midsegment has a 99% in-stent restenosis with slow flow into the PDA and the PLV. There is retrograde collaterals from the LAD toward the PDA and the PLV. Left Ventriculogram: Not performed Hemodynamics: There was no gradient across the aortic valve, LVEDP was 18-20 mmHg Conclusion: 1. Severe in-stent restenosis in the mid RCA with collateral from the left system 2. Mild disease in the LAD and left circumflex 3. Right dominance 4. Successful stenting of the mid RCA with reduction stenosis from 99% to less than 5% with IVUS imaging and MARY-3 flow Recommendations: The patient will continue on aspirin and clopidogrel without any interruption for 6 months in addition to aggressive coronary risks modifications, smoking cessation and maintaining his LDL below 70 mg/dL. Will be referred to the [place] quit line. The findings and the recommendations were discussed with the patient and the family and they were in full understanding and agreement. Duration of sedation is 80 minutes.
[2025-02-22] MEDS: ISOSORBIDE MONONITRATE ER 30 MG TAB.ER.24H PO SCH (19:50)
[2025-02-22] MEDS: carvediloL 3.125 MG TAB PO SCH (20:18)
[2025-02-23 07:00] LABS: African American GFR (CKD) >90 (>60 ml/min/1.73 sqM); Anion Gap 6 mmol/L; Blood Urea Nitrogen 10 mg/dL (9-20); Calcium 8.4 mg/dL (8.4-10.2); Carbon Dioxide 25 mmol/L (22-30); Chloride 107 mmol/L (98-107); Glucose 124 mg/dL (74-99); Non-African American GFR(CKD) >90 (>60 ml/min/1.73 sqM); Sodium 138 mmol/L (137-145)
--- NOTE | 2025-02-23 07:25 | P.PN ---
Subjective Progress Note Date: 02/23/25 PROGRESS NOTE The patient is a 54-year-old male with a known history of CAD status post stenting of the RCA in June 2024 in the setting of a myocardial infarction who presented with symptoms of progressive exertional angina pectoris. He underwent cardiac catheterization was found to have severe in-stent restenosis of the mid RCA and underwent angioplasty and stenting of that vessel. He is doing well this morning, ambulating without difficulty. He denies any chest discomfort or dyspnea. He continues to be in sinus mechanism. Medications: Aspirin, clopidogrel 75 mg daily, amlodipine 10 mg daily, Coreg 3.25 mg twice a day, ezetimibe 10 mg daily, isosorbide mononitrate 30 mg daily, Diovan 320 mg daily. PHYSICAL EXAMINATION: Blood pressure 130/80 heart rate 60 LUNGS: [Clear to auscultation] HEART: [Regular rate and rhythm, S1, S2. No S3. Systolic ejection murmur] ABDOMEN: [Soft, nontender, no organomegaly] EXTREMETIES: [No edema, right radial pulse intact] LAB: Sinus mechanism with T wave inversion inferiorly. Potassium 4.0, BUN 10, creatinine 0.8 IMPRESSION: 1. Status post stenting of the mid RCA 2. Prior myocardial infarction in June 2024 3. Hypertension 4. Hyperlipidemia 5. Diabetes PLAN: 1. Increase physical activity 2. Continue present therapy 3. Discharge home today 4. Follow-up with Dr. Max next week Objective - Vital Signs Vital signs: Vital Signs Temp 97.5 F L 02/23/25 00:45 Pulse 68 02/23/25 00:45 Resp 20 02/23/25 00:45 BP 130/80 02/23/25 00:45 Pulse Ox 96 02/23/25 00:45 FiO2 Intake & Output 02/22/25 02/23/25 02/23/25 18:59 06:59 18:59 Intake Total 552 222 Balance 552 222 Weight 133.8 kg Intake: IV 552 Oral 222 Other: # Voids 4 2 # Bowel Movements 0 - Labs CBC & Chem 7: 02/23/25 06:28 Labs: Abnormal Lab Results - Last 24 Hours (Table) 02/23/25 Range/Units 06:28 Glucose 124 H (74-99) mg/dL
[2025-02-23 07:34] VITALS: BP 189/82; PULSE 63; RESP 18; TEMP 98.2
[2025-02-23] MEDS: EZETIMIBE 10 MG TAB PO SCH (08:59)
[2025-02-23] MEDS: ATORVASTATIN 80 MG TAB PO SCH (08:59)
[2025-02-23] MEDS: ASPIRIN 81 MG PO SCH (09:00)
[2025-02-23] MEDS: VALSARTAN 160 MG TAB PO SCH (09:00)
[2025-02-23] MEDS: CLOPIDOGREL 75 MG TAB PO SCH (09:01)
[2025-02-23] MEDS: amLODIPine 10 MG TAB PO SCH (09:05)
== END 2025-02-23 09:42 | disposition home or self-care (01) ==
LOC: CATHCVL 06:11 → 6NMEDSUR 09:07 → CATHCVL 02-23 09:42
PROVIDERS: ATTEND Internal Medicine Interventional Cardiology
DX: T82.855A Stenosis of coronary artery stent, initial encounter (principal); E11.9 Type 2 diabetes mellitus without complications; E78.5 Hyperlipidemia, unspecified; I10 Essential (primary) hypertension; I25.10 Atherosclerotic heart disease of native coronary artery without angina pectoris; I25.2 Old myocardial infarction; Z79.02 Long term (current) use of antithrombotics/antiplatelets; Z79.82 Long term (current) use of aspirin; Z79.899 Other long term (current) drug therapy; Z87.891 Personal history of nicotine dependence; Z79.84 Long term (current) use of oral hypoglycemic drugs; Y83.2 Surgical operation with anastomosis, bypass or graft as the cause of abnormal reaction of the patient, or of later complication, without mention of misadventure at the time of the procedure
CPT/HCPCS: 92978; 93458; 80048; 99152; 99153; C9600; C1769 ×5; C1894; C1887 ×3; C1725 ×5; C1753; C1874; J2250; J1644 ×3; J2003; J3010; Q9967